=== PATIENT | male | born 1960 | race Caucasian/White ===

== ENCOUNTER 2017-03-14 12:54 | Observation (INO) | payer BC ==
--- NOTE | 2017-03-14 14:13 | RAD ---
INDICATION: Dizziness. COMPARISON: Comparison is made with a prior chest x-ray study from October 02, 2014. TECHNIQUE: Dual-energy PA and lateral views of the chest were obtained. FINDINGS: The heart is within normal limits in size. Mediastinal and hilar contours appear within normal limits. The lungs are hyperinflated and clear. No pleural effusion is seen. IMPRESSION: NO EVIDENCE FOR ACTIVE CARDIOPULMONARY DISEASE.
[2017-03-14 14:25] LABS: Hematocrit 41 % (42-52); Hemoglobin 14.1 g/dl (14.0-18.0); Mean Corpuscular HGB Conc 34 g/dl (31-36); Mean Corpuscular Hemoglobin 35 pg (27-31); Mean Corpuscular Volume 100 fL (80-94); Mean Platelet Volume 8 um3 (7.4-10.4); Red Blood Count 4.08 10^6/ul (4.0-5.4); Red Cell Distribution Width 13 % (10.5-15); White Blood Count 12.6 10^3/ul (3.5-10.8)
[2017-03-14 14:45] LABS: Troponin I 0.01 ng/mL (<0.04)
--- NOTE | 2017-03-14 14:45 | RAD ---
Indication: Dizziness. CT of the brain was performed without IV contrast. Ventricular structures are midline. No midline shift is noted. The extraction spaces are unremarkable. There is no evidence of intracranial mass or hemorrhage. No other high or low density lesions are identified. Mastoid air cells and paranasal sinuses are unremarkable. No significant change is noted since July 13, 2012 IMPRESSION: No intracranial mass or hemorrhage is noted.
[2017-03-14 14:46] LABS: ALT 23 U/L (7-52); Albumin 4.4 g/dL (3.2-5.2); Alkaline Phosphatase 53 U/L (34-104); BUN/Creatinine Ratio 28.2 (8-20); Blood Urea Nitrogen 20 mg/dL (6-24); C Reactive Protein 8.64 mg/L (< 5.00); CO2 Carbon Dioxide 20 mmol/L (22-32); Calcium 9.8 mg/dL (8.6-10.3); Chloride 102 mmol/L (101-111); Creatine Kinase 202 U/L (10-223); EGFR African American 147.1 (>60); EGFR Non-African American 114.4 (>60); Globulin 3.2 g/dL (2-4); Glucose 97 mg/dL (70-100); Sodium 130 mmol/L (133-145); Total Protein 7.6 g/dL (6.4-8.9)
[2017-03-14 15:01] LABS: Alcohol < 10 mg/dL (<10)
[2017-03-14] MEDS ORDERED: Iohexol 350* (CONTRAST) 500 ML MDV IV ONE (15:04)
[2017-03-14 15:05] LABS: TSH (Thyroid Stimulating Horm) 0.96 mcIU/mL (0.34-5.60)
[2017-03-14 15:26] LABS: AST 32 U/L (13-39); Anion Gap 8 mmol/L (2-11); Magnesium 1.9 mg/dL (1.9-2.7); Potassium 4.9 mmol/L (3.5-5.0)
[2017-03-14 15:30] LABS: Urine Bilirubin Negative (Negative); Urine Glucose Negative (Negative); Urine Nitrite Negative (Negative)
[2017-03-14 16:04] LABS: Benzodiazepine Urine Screen None Detected (None Detect)
[2017-03-14] MEDS ORDERED: Aspirin Low Dose CHEW TAB* 81 MG PO ONE (16:05)
--- NOTE | 2017-03-14 16:17 | RAD ---
Indication: Unsteady gait. Contrast: Administered 80.1 ml of OMNIPAQUE 350 mg/ml CTA of the neck and head was performed after IV contrast administration. Coronal and sagittal reconstructed images were obtained. The origins of the great vessels are unremarkable. The right and left common carotid artery demonstrates no intimal wall thickening. Calcific plaque is noted in the carotid bulbs bilaterally however no significant stenosis of either internal carotid artery is noted. The internal carotid arteries are patent without evidence of aneurysmal dilatation or carotid artery dissection. The vertebral arteries are unremarkable. The left vertebral artery has a separate origin arising from the aortic arch. Intracranial circulation demonstrates normal anterior and middle cerebral artery bifurcation. No branch occlusion is identified. Basilar artery and posterior cerebral arteries are unremarkable. IMPRESSION: No branch occlusion is noted. No aneurysmal dilatation is noted. Minimal plaque is noted in the carotid bulbs bilaterally. CTA of the head demonstrates no aneurysmal dilatation or branch occlusion.
--- NOTE | 2017-03-14 16:25 | RAD ---
Indication: Ataxia. Image sequences: Sagittal and axial T1, axial T2, FLAIR, diffusion and susceptibility weighted images of the brain were obtained. Ventricular structures are midline. No midline shift is noted. The extra-axial spaces are unremarkable. There is no evidence of intracranial mass or hemorrhage. No other high or low density lesions are identified. Periventricular signal abnormalities are noted in the deep white matter of the parietal lobes bilaterally. No restriction of diffusion is noted. Susceptibility weighted images demonstrates no evidence of residual hemosiderin. IMPRESSION: Chronic ischemic White matter change without evidence of restriction of diffusion.
[2017-03-14] MEDS ORDERED: hydrOXYzine HCL TAB* 10 MG PO PRN (17:26)
[2017-03-14] MEDS ORDERED: Meloxicam(NF) 15 MG TAB PO PRN (17:26)
[2017-03-14] MEDS ORDERED: Thiamine TAB* 100 MG TAB PO ONE (17:29)
--- NOTE | 2017-03-14 17:39 | CONS ---
CONSULTATION REPORT: DATE OF CONSULT: 03/14/17 PATIENT OF: Dr. Flores. HISTORY OF PRESENT ILLNESS: This is a 56-year-old man without prior stroke who at 10 a.m. this morning presented acutely with a feeling of being off balance. He tried to walk and also drive and he was weaving both with his walking and his driving to either side. He did not actually fall. He had no weakness, numbness. He has had a slight mild bifrontal headache with this. No visual symptoms. One side did not feel particularly worse than the other as far as he could tell. There has been no prior stroke. He had a feeling of imbalance about 6 months ago when he was helping his son but this passed relatively quickly. He is not better now than he was at 10 o' clock when this started. At sometime early afternoon he came by ambulance to the emergency room and I was notified at about 2:15 of his story. Risk factors include hypertension, hyperlipidemia, and a greater than 40-year history of at least 1 pack a day. Of note, he drinks 3 to 4 beers a day during weekdays and more heavily on weekends. There has been no recent surgeries. He has also had GERD and nonischemic cardiomyopathy. He has had a cardiac cath. In the past he has had bilateral carpal tunnel release, rotator cuff repair. MEDICATIONS: Include: 1. Vitamin D 2000 units daily. 2. Mobic 7.5 to 15 mg daily p.r.n. 3. Nexium 40 mg daily. 4. Metoprolol XL 50 mg daily. 5. Cymbalta 60 mg b.i.d. 6. Lisinopril 20 mg daily. 7. Lipitor 40 mg daily. 8. Claritin 10 mg daily. 9. Atarax 10 to 30 mg t.i.d. p.r.n. FAMILY HISTORY: Negative for hypertension, diabetes, cardiovascular disease. 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 REVIEW OF SYSTEMS: Negative in all 14 spheres other than the HPI. PHYSICAL EXAM: Temperature 98.5, pulse 82, respirations 22, blood pressure 130/ 85. He is alert and oriented with normal speech and comprehension. Cranial nerves II through XII were intact. There was no nystagmus. Fundi were benign. There was no temporal artery tenderness. [id number] showed no major abnormalities. There was mild tremor on the left hand compared to the right but no overt dysmetria. His rapid alternating movements were smoother on the right than the left, but he is right handed. [id number] appeared intact. Strength 5/5. Walking, he was somewhat unsteady and could walk independently but tended to veer off to either the left or the right. Reflexes were 2+. Toes were downgoing. Chest: Clear. Cardiovascular : Regular rate and rhythm. Abdomen: Soft with positive bowel sounds. Was intact to light touch diffusely. Neck was nontender. He had no temporal artery tenderness. DIAGNOSTIC STUDIES/LAB DATA: White count of 12.6, MCV of 100, hematocrit of 41 , platelets of 337,000. Normal PTT. Sodium of 130, bicarb of 40. Normal BUN and creatinine. Normal liver function tests. C-reactive protein was 8.64. Normal TSH. UA was negative. Toxicology showed serum alcohol less than 10. CT scan of the brain was normal and was reviewed. His CTA has just been done and all pictures are not formatted, I will be reviewing shortly. The concern of the acute onset of ataxia is whether this could be a cerebellar ischemia. We will be getting CTA shortly and I discussed with the family that if there is some large vessel occlusion or abnormality, then we may contact [facility] for their opinion and possible transfer to a tertiary center. If not, he will be managed here. When the case was discussed with me, he was at about 4 hours and 15 minutes out of the past event. I discussed if he had further events, he needs to come in at the onset of his events. I discussed also that the acute onset raises a possibility of cerebellar ischemia but there is no clear-cut obvious focality to his exam and it is possible that this could be some other process. He did have some other possible related event back in about 5 or 6 months ago. Thank you for sharing his case. [id number]/[facility] #: [id number] [place]
--- NOTE | 2017-03-14 18:09 | ED ---
Myron Rosario Aidan, scribed for Adin Flores MD on 03/14/17 at 1608 . Neurological HPI - HPI Summary HPI Summary: 56 y/o male presents to the ED via EMS with a complaint of an acute, moderate episode of dizziness and slurred speech that occurred just MUSIC REHABILITATION THER[employer]IST while the patient was at work. During EMS transportation, he also had CP that has resolved. 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 His dizziness was described as seeing the room spin. He later felt as though he was not driving in a straight line and he had associated nausea. At 1150, he called the police. Pt denies vomiting. When he was found, he had an 2 sat of 86%. When he was placed on 2l O2, his O2 sat went up to 93%. - History of Current Complaint Chief Complaint: EDDizziness Stated Complaint: POSSIBLE STROKE Time Seen by Provider: 03/14/17 13:42 Hx Obtained From: Patient, EMS Onset/Duration: Sudden Onset, Started minutes ago, Resolved Timing: Intermittent Episodes Lasting: Onset Severity: Moderate Current Severity: Mild Number of Seizures: 0 - Pt may have had a stroke Neurological Deficit Location: Generalized - dizziness, CP Pain Intensity: 0 Pain Scale Used: 0-10 Numeric Character: Other: - dizziness, CP, possible CVA Number of Episodes: 1 Syncope Context: Unwitnessed, Loss of Consciousness: No, At Rest - driving a car Frequency: Episodes x___ - 1, Episodes Lasting ____ (in Mins/Days/Weeks/Years) - minutes Seizure Character: Generalized Aggravating: Unknown Alleviating: Unknown Associated Signs and Symptoms: Negative: Negative - dizzines, CP, slurred speech , nausea - Allergy/Home Medications Allergies/Adverse Reactions: Allergies Allergy/AdvReac Type Severity Reaction Status Date / Time No Known Allergies Allergy Verified 08/15/16 08:55 Home Medications: Home Medications LoraTADine TAB(NF) [Claritin 10 MG TAB(NF)] 10 mg PO DAILY 03/14/17 [History Confirmed 03/14/17] hydrOXYzine HCL TAB* [Atarax 10 MG TAB*] 10 - 30 mg PO TID PRN 03/14/17 [ History Confirmed 03/14/17] PMH/Surg Hx/FS Hx/Imm Hx Endocrine/Hematology History: Denies: Hx Anticoagulant Therapy, Hx Diabetes, Hx Thyroid Disease Cardiovascular History: Reports: Hx Angina, Hx Hypercholesterolemia, Hx Hypertension, Other Cardiovascular Problems/Disorders - CHOLESTEROL CONTROL WITH MEDS Denies: Hx Coronary Artery Disease, Hx Myocardial Infarction, Hx Pacemaker/ ICD, Hx Valvular Heart Disease Respiratory History: Denies: Hx Asthma, Hx Chronic Obstructive Pulmonary Disease (COPD) GI History: Reports: Hx Gastroesophageal Reflux Disease - ON MEDS History: Denies: Hx Renal Disease Musculoskeletal History: Reports: Other Musculoskeletal History - MENISCAL TEAR LEFT KNEE Sensory History: Denies: Hx Contacts or Glasses, Hx Hearing Aid Opthamlomology History: Denies: Hx Contacts or Glasses Neurological History: Denies: Hx Dementia, Hx Seizures Psychiatric History: Reports: Hx Depression - ON MEDS Denies: Hx Panic Disorder, Hx Substance Abuse - Surgical History Surgery Procedure, Year, and Place: 1997 BILATERAL CARPAL TUNNEL RELEASE, [facility]. 2007 & 2007 RIGHT ROTATOR CUFF REPAIR X 2, [facility]. 03/2014 CARDIAC CATHERIZATION, [facility]. MENISCUS REPAIR LEFT KNEE Hx Anesthesia Reactions: No Infectious Disease History: No Infectious Disease History: Denies: Hx Hepatitis, Hx Human Immunodeficiency Virus (HIV), Traveled Outside the in Last 30 Days - Family History Known Family History: Positive: Hypertension - Social History Occupation: Employed Full-time Lives: With Family Alcohol Use: Daily Alcohol Amount: 1-2 BEERS Substance Use Type: Reports: None Smoking Status (MU): Heavy Every Day Tobacco Smoker Type: Cigarettes Amount Used/How Often: 1 PPD Length of Time of Smoking/Using Tobacco: 40 YEARS Have You Smoked in the Last Year: Yes Review of Systems Constitutional: Negative Eyes: Negative ENT: Negative Positive: Chest Pain. Negative: Palpitations Respiratory: Negative Positive: Nausea. Negative: Abdominal Pain, Vomiting, Diarrhea Genitourinary: Negative Musculoskeletal: Negative Skin: Negative Neurological: Other - dizziness Positive: Slurred Speech. Negative: Headache, Weakness, Paresthesia, Numbness Psychological: Normal All Other Systems Reviewed And Are Negative: Yes Physical Exam - Summary Physical Exam Summary: VITAL SIGNS: Reviewed. GENERAL: Patient is a well developed and nourished male who is lying comfortable in the stretcher. Patient is not in any acute respiratory distress. HEAD AND FACE: No signs of trauma. No ecchymosis, hematomas or skull depressions. No sinus tenderness. EYES: PERRLA, EOMI x 2, No injected conjunctiva, no nystagmus. No photophobia. EARS: Hearing grossly intact. Ear canals and tympanic membranes are within normal limits. MOUTH: Oropharynx within normal limits. NECK: Supple, trachea is midline, no adenopathy, no JVD, no carotid bruit, no c- spine tenderness, neck with full ROM. No meningeal signs, no Kernig's or brudzinskis signs. CHEST: Symmetric, no tenderness at palpation LUNGS: Clear to auscultation bilaterally. No wheezing or crackles. CVS: Regular rate and rhythm, S1 and S2 present, no murmurs or gallops appreciated. ABDOMEN: Soft, non-tender. No signs of distention. No rebound no guarding, and no masses palpated. Bowel sounds are normal. EXTREMITIES: FROM in all major joints, no edema, no cyanosis or clubbing. NEURO: Alert and oriented x 3. NIH score is 0. However when I ambulated the patient he had ataxia. GCS: 15 SKIN: Dry and warm Triage Information Reviewed: Yes Vital Signs On Initial Exam: Initial Vitals Temp Pulse Resp BP Pulse Ox 98.5 F 76 18 136/81 95 03/14/17 13:21 03/14/17 13:21 03/14/17 13:21 03/14/17 13:21 03/14/17 13:21 Vital Signs Reviewed: Yes - Drift Coma Scale Coma Scale Total: 15 Diagnostics - Vital Signs Vital Signs Temp Pulse Resp BP Pulse Ox 03/14/17 13:30 82 22 130/85 95 03/14/17 13:27 83 18 95 03/14/17 13:26 136/81 03/14/17 13:21 98.5 F 76 18 136/81 95 - Laboratory Lab Results: Lab Results 03/14/17 03/14/17 03/14/17 Range/Units 14:10 14:10 14:10 WBC 12.6 H (3.5-10.8) 10^3/ul RBC 4.08 (4.0-5.4) 10^6/ul Hgb 14.1 (14.0-18.0) g/dl Hct 41 L (42-52) % MCV 100 H (80-94) fL MCH 35 H (27-31) pg MCHC 34 (31-36) g/dl RDW 13 (10.5-15) % Plt Count 337 (150-450) 10^3/ul MPV 8 (7.4-10.4) um3 Neut % (Auto) 82.4 (38-83) % Lymph % (Auto) 7.4 L (25-47) % [place] % (Auto) 8.9 (1-9) % Eos % (Auto) 0.9 (0-6) % Baso % (Auto) 0.4 (0-2) % Absolute Neuts (auto) 10.4 H (1.5-7.7) 10^3/ul Absolute Lymphs (auto) 0.9 L (1.0-4.8) 10^3/ul Absolute Monos (auto) 1.1 H (0-0.8) 10^3/ul Absolute Eos (auto) 0.1 (0-0.6) 10^3/ul Absolute Basos (auto) 0 (0-0.2) 10^3/ul Absolute Nucleated RBC 0 10^3/ul Nucleated RBC % 0 APTT 26.5 (26.0-36.3) seconds Sodium 130 L (133-145) mmol/L Potassium 4.9 (3.5-5.0) mmol/L Chloride 102 (101-111) mmol/L Carbon Dioxide 20 L (22-32) mmol/L Anion Gap 8 (2-11) mmol/L BUN 20 (6-24) mg/dL Creatinine 0.71 (0.67-1.17) mg/dL Est GFR ( Amer) 147.1 (>60) Est GFR (Non-Af Amer) 114.4 (>60) BUN/Creatinine Ratio 28.2 H (8-20) Glucose 97 (70-100) mg/dL Lactic Acid (0.5-2.0) mmol/L Calcium 9.8 (8.6-10.3) mg/dL Magnesium 1.9 (1.9-2.7) mg/dL Total Bilirubin 0.50 (0.2-1.0) mg/dL AST 32 (13-39) U/L ALT 23 (7-52) U/L Alkaline Phosphatase 53 (34-104) U/L Total Creatine Kinase 202 (10-223) U/L Troponin I 0.01 (<0.04) ng/mL C-Reactive Protein 8.64 H (< 5.00) mg/L B-Natriuretic Peptide ( - 100) pg/mL Total Protein 7.6 (6.4-8.9) g/dL Albumin 4.4 (3.2-5.2) g/dL Globulin 3.2 (2-4) g/dL Albumin/Globulin Ratio 1.4 (1-3) TSH 0.96 (0.34-5.60) mcIU/mL Urine Color Urine Appearance Urine pH (5-9) Ur Specific Ramsey (1.010-1.030) Urine Protein (Negative) Urine Ketones (Negative) Urine Blood (Negative) Urine Nitrate (Negative) Urine Bilirubin (Negative) Urine Urobilinogen (Negative) Ur Leukocyte Esterase (Negative) Urine Glucose (Negative) Serum Alcohol < 10 (<10) mg/dL 03/14/17 03/14/17 03/14/17 Range/Units 14:10 14:10 15:18 WBC (3.5-10.8) 10^3/ul RBC (4.0-5.4) 10^6/ul Hgb (14.0-18.0) g/dl Hct (42-52) % MCV (80-94) fL MCH (27-31) pg MCHC (31-36) g/dl RDW (10.5-15) % Plt Count (150-450) 10^3/ul MPV (7.4-10.4) um3 Neut % (Auto) (38-83) % Lymph % (Auto) (25-47) % [place] % (Auto) (1-9) % Eos % (Auto) (0-6) % Baso % (Auto) (0-2) % Absolute Neuts (auto) (1.5-7.7) 10^3/ul Absolute Lymphs (auto) (1.0-4.8) 10^3/ul Absolute Monos (auto) (0-0.8) 10^3/ul Absolute Eos (auto) (0-0.6) 10^3/ul Absolute Basos (auto) (0-0.2) 10^3/ul Absolute Nucleated RBC 10^3/ul Nucleated RBC % APTT (26.0-36.3) seconds Sodium (133-145) mmol/L Potassium (3.5-5.0) mmol/L Chloride (101-111) mmol/L Carbon Dioxide (22-32) mmol/L Anion Gap (2-11) mmol/L BUN (6-24) mg/dL Creatinine (0.67-1.17) mg/dL Est GFR ( Amer) (>60) Est GFR (Non-Af Amer) (>60) BUN/Creatinine Ratio (8-20) Glucose (70-100) mg/dL Lactic Acid 0.9 (0.5-2.0) mmol/L Calcium (8.6-10.3) mg/dL Magnesium (1.9-2.7) mg/dL Total Bilirubin (0.2-1.0) mg/dL AST (13-39) U/L ALT (7-52) U/L Alkaline Phosphatase (34-104) U/L Total Creatine Kinase (10-223) U/L Troponin I (<0.04) ng/mL C-Reactive Protein (< 5.00) mg/L B-Natriuretic Peptide 19 ( - 100) pg/mL Total Protein (6.4-8.9) g/dL Albumin (3.2-5.2) g/dL Globulin (2-4) g/dL Albumin/Globulin Ratio (1-3) TSH (0.34-5.60) mcIU/mL Urine Color Straw Urine Appearance Clear Urine pH 5.0 (5-9) Ur Specific [place] 1.005 L (1.010-1.030) Urine Protein Negative (Negative) Urine Ketones Negative (Negative) Urine Blood Negative (Negative) Urine Nitrate Negative (Negative) Urine Bilirubin Negative (Negative) Urine Urobilinogen Negative (Negative) Ur Leukocyte Esterase Negative (Negative) Urine Glucose Negative (Negative) Serum Alcohol (<10) mg/dL Result Diagrams: 03/14/17 14:10 03/14/17 14:10 Lab Statement: Any lab studies that have been ordered have been reviewed, and results considered in the medical decision making process. - Radiology BRAIN MRI Xray Interpretation: Positive (See Comments) - IMPRESSION: Chronic ischemic White matter change without evidence of restriction of diffusion. Radiology Interpretation Completed By: Radiologist - CT HEAD CTA CT Interpretation: Positive (See Comments) - IMPRESSION: No branch occlusion is noted. No aneurysmal dilatation is noted. Minimal plaque is noted in the carotid bulbs bilaterally. CTA of the head demonstrates no aneurysmal dilatation or branch occlusion. 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 During EMS transportation, he also had CP that has resolved. 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 His dizziness was described as seeing the room spin. He later felt as though he was not driving in a straight line and he had associated nausea. At 1150, he called the police. Pt denies vomiting. When he was found, he had an 2 sat of 86%. When he was placed on 2l O2, his O2 sat went up to 93%. In the ED course an IV access was obtained. Patient was placed in a cardiac rn. Patient was started with IV fluids. Labs within normal limits except for WBC 12.6, Na 130, CRP 8.6. Troponin #1: 0.01. UA negative for UTI. EKG shows a NSR at w/o ST elevations. CXR impression: No acute pathology. CT Brain: No acute intracranial pathology. In the ED course I discussed the case with Dr. Nelson who came and saw the patient. He recommended to get a CTA . After he reviewed the CTA he recommended to order an MRI and give the patient ASA. He also requested to admit patient to the hospitalist services. He continues to be stable. I discuss my physical exam, findings and test results with Dr. Guido from the hospitalist services and she agrees to admit patient to his services. Patient is hemodynamically stable alert and oriented x 3. I discuss my physical exam, findings and test results with Dr. Guido from the hospitalist services and she agrees to admit patient to his services. Patient is hemodynamically stable alert and oriented. He will be admitted to Dr. Guido for further evaluation. - Differential Dx Differential Diagnoses Neuro: Positive: Carbon Monoxide Poisoning, Cerebrovascular Accident, Seizure Disorder, Transient Ischemic Attack - Diagnoses Provider Diagnoses: Cerebellar Ischemia Discharge - Discharge Plan Condition: Stable Disposition: ADMITTED TO [facility] Discharge Disposition Comment: The patient will be admitted to Dr. Guido for further evaluation Referrals: Brittany Velez MD [Primary Care Provider] - The documentation as recorded by the Myron estevez Aidan accurately reflects the service I personally performed and the decisions made by me, Adin Flores MD.
[2017-03-14] MEDS ORDERED: LORazepam TAB(*) 1 MG PO SCH (19:00)
[2017-03-14] MEDS: Folic Acid TAB* 1 MG PO SCH (19:21)
[2017-03-14] MEDS: Heparin VIAL(*) 5000 UNITS/ML VIAL (FIVE THOUSAND) SUBCUT SCH (21:14)
[2017-03-14] MEDS: DULoxetine DR CAP* 60 MG CAP.DR PO SCH (21:14)
--- NOTE | 2017-03-14 21:24 | HP ---
HISTORY AND PHYSICAL: DATE OF ADMISSION: 03/14/17 PRIMARY CARE PHYSICIAN: Dr. Velez. CHIEF COMPLAINT: Ataxia. HISTORY OF PRESENT ILLNESS: Mr. Shaffer is a 56-year-old male with past medical history of hypertension, nonischemic cardiomyopathy with an EF 40% to 45%, GERD , depression, anxiety, hyperlipidemia, alcohol abuse, who presents to the hospital with some sensation of dizziness and feeling off balance. The patient states his symptoms began around 10:30 this morning. 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 He states his symptoms progressed to the point where he was stumbling and he felt like he was very drunk. He continued to make stops with his [employer] truck and seemed that with each stop, his symptoms became worse and worse until he noted that he was swerving slightly when he was driving. At this point, the patient called EMS because he felt like he had had difficulty even standing up at that point. He reported associated nausea with this. Denied any emesis or chest pain. Did report some associated shortness of breath, but feels this may have just been anxiety. He felt very sweaty when this was happening. No fever or chills recently. He has been eating and drinking well. 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 He was unable to complete the sheetrocking and called his . He went home and went to sleep and then it had resolved the next day. PAST MEDICAL HISTORY: Hypertension, GERD, alcohol abuse, nonischemic cardiomyopathy with an EF of 40% to 45%, depression, anxiety, and hyperlipidemia. PAST SURGICAL HISTORY: Left ankle ORIF, carpal tunnel release, left knee arthroscopy, right shoulder surgery. HOME MEDICATIONS: 1. Vitamin D3 2000 units by mouth daily. 2. Multivitamin 1 tablet by mouth daily. 3. Mobic 7.5 to 15 mg by mouth daily as needed for pain. 4. Esomeprazole 40 mg by mouth daily. 5. Toprol 50 mg by mouth daily. 6. Duloxetine 60 mg by mouth 2 times daily. 7. Lisinopril 20 mg by mouth daily. 8. Atorvastatin 40 mg by mouth daily. 9. Loratadine 10 mg by mouth daily. 10. Hydroxyzine 10 to 30 mg 3 times daily as needed for anxiety. FAMILY HISTORY: Significant for mother with breast cancer, a brother with colon cancer, father with esophageal cancer, maternal grandmother with leukemia. SOCIAL HISTORY: The patient is a 5-wrwh-lnu-day smoker x40 years. He reports drinking 2 to 3 drinks a night every day of the week and he states that on the weekends, it is not unusual for him to go through a 30-pack of beers in 2 days. He denies any history of withdrawal symptoms. REVIEW OF SYSTEMS: The patient reports chronic mild cough and congestion. Otherwise, 12-point review of systems is negative except for that as noted in the HPI. PHYSICAL EXAMINATION GENERAL: The patient is a middle-aged man, lying in bed, in no apparent distress. VITAL SIGNS: On admission, temperature 98.5, heart rate is 76, respiratory rate of 18, O2 saturation is 95% on room air, blood pressure 136/81. HEENT: Head: Normocephalic, atraumatic. Eyes: Pupils equal, round, reactive to light and accommodation. Anicteric sclerae. ENT: Dry mucous membranes. No cervical adenopathy. LUNGS: Clear to auscultation bilaterally. No wheezes, rales, or rhonchi. CARDIOVASCULAR: Regular rate and rhythm. S1 and S2 present. No murmurs, gallops, or rubs. ABDOMEN: Soft, nontender, nondistended. Bowel sounds positive. Ventral hernia. EXTREMITIES: No cyanosis, clubbing, or edema. NEURO: The patient is alert and oriented x3. Cranial nerves II through XII intact. Strength is 5/5 throughout, bilateral upper and lower extremities. Sensation is intact and symmetric bilaterally. Lsrimb-eb-wfap seems good. Did not assess the patient's gait, but with Neurology, he tended to veer one way or the other. DIAGNOSTIC STUDIES/LAB DATA: White blood cell count of 12.6, hematocrit of 41 , platelets are 337. Sodium of 130, potassium 4.9, chloride of 102, carbon dioxide of 20, BUN of 20, creatinine 0.71, glucose of 97. LFTs within normal limits. Troponin 0.01. CRP of 8.64. TSH of 0.96. UA negative. U-tox negative. EKG personally reviewed shows normal sinus rhythm. Chest x-ray shows no acute disease. CT shows no acute disease. CTA of the head and neck shows no significant stenosis. MRI: Chronic ischemic white matter change without evidence of restriction or diffusion. ASSESSMENT AND PLAN: Ataxia in a 56-year-old male with a past medical history of hypertension, nonischemic cardiomyopathy, gastroesophageal reflux disease, depression, anxiety, hyperlipidemia, and alcohol abuse. 1. Ataxia: Appreciate Neurology's assistance. I spoke with Dr. Nelson, who was concerned about a possible cerebellar transient ischemic attack, and an initial part of the stroke workup has been negative. We will order an echocardiogram and a lipid panel for the morning. We will monitor the patient on telemetry. The patient has received a full-dose aspirin in the emergency department. We will continue 81 mg by mouth daily for now. We will check hemoglobin A1c. 2. Hypertension: Continue home lisinopril, metoprolol. 3. Nonischemic cardiomyopathy: Continue atorvastatin, metoprolol, and lisinopril. 4. Alcohol abuse: The patient denies any history of alcohol withdrawal symptoms. He states his last drink was 2 nights ago. We will monitor the patient on [facility] protocol and start on thiamine, folate, and multivitamin. 5. Gastroesophageal reflux disease: Continue PPI. 6. Depression: Continue duloxetine. 7. DVT prophylaxis: Heparin subcu. 8. Code status: The patient is full code. TIME SPENT: Total time spent on this admission, 40 minutes with over half the time spent [id number] with the patient in counseling and coordinating care. [id number]/[facility] #: [id number] CAROLINA
[2017-03-15] MEDS: Heparin VIAL(*) 5000 UNITS/ML VIAL (FIVE THOUSAND) SUBCUT SCH ×2 (05:37→13:13)
[2017-03-15 05:54] LABS: Hematocrit 43 % (42-52); Hemoglobin 14.7 g/dl (14.0-18.0); Mean Corpuscular HGB Conc 34 g/dl (31-36); Mean Corpuscular Hemoglobin 34 pg (27-31); Mean Corpuscular Volume 101 fL (80-94); Mean Platelet Volume 7 um3 (7.4-10.4); Red Blood Count 4.28 10^6/ul (4.0-5.4); Red Cell Distribution Width 13 % (10.5-15); White Blood Count 7.5 10^3/ul (3.5-10.8)
[2017-03-15 06:08] LABS: Calcium 10.1 mg/dL (8.6-10.3); EGFR African American 138.1 (>60); EGFR Non-African American 107.3 (>60); Potassium 4.2 mmol/L (3.5-5.0)
[2017-03-15] MEDS ORDERED: Aspirin EC Low Dose* 81 MG TAB.EC PO SCH (09:00)
[2017-03-15] MEDS ORDERED: Omeprazole CAP* 20 MG PO SCH (09:00)
[2017-03-15] MEDS ORDERED: Atorvastatin* 40 MG TAB PO SCH (09:00)
[2017-03-15] MEDS ORDERED: Cholecalciferol TAB* 1000 UNITS PO SCH (09:00)
[2017-03-15] MEDS ORDERED: Thiamine TAB* 100 MG TAB PO SCH (09:00)
[2017-03-15] MEDS ORDERED: Lisinopril TAB* 10 MG PO SCH (09:00)
[2017-03-15] MEDS ORDERED: Cetirizine* 10 MG TAB PO SCH (09:00)
[2017-03-15] MEDS ORDERED: Multivitamins/Minerals TAB PO SCH (09:00)
[2017-03-15] MEDS ORDERED: Metoprolol Succinate XL TAB* 50 MG PO SCH (09:00)
[2017-03-15] MEDS: Folic Acid TAB* 1 MG PO SCH (10:28)
[2017-03-15] MEDS: DULoxetine DR CAP* 60 MG CAP.DR PO SCH (10:29)
[2017-03-15] MEDS ORDERED: Atorvastatin* 80 MG TAB PO SCH (16:15)
--- NOTE | 2017-03-15 17:40 | ECHO ---
Patient: MILAGROS PEARSON [facility] Rec#: [id number] : 1960 Date: 03/15/2017 Age: 56y Height: 165.1 cm / 65.0 in Weight: 66.2 kg / 145.9 lbs Sex: M BSA: 1.7 Room#: 435 Admit Date#: 03/14/2017 Type: Inpatient Referring: KALYAN SR MD Reading: Ziggy Lau MD Stacker: Rosie Farias RN RDCS CC: Brittany Millard MD Transthoracic Echocardiogram Indication: TIA BP: 125/83 HR: 97 Rhythm: NSR Findings History: Non-ischemic cardiomyopathy, HTN, HLD, smoker, ETOH abuse, GERD Technical Comments: The study quality is fair. The study is technically limited due to the patient's smoking history. Completed at 1350. Left Ventricle: The left ventricular chamber size is normal. Mild concentric left ventricular hypertrophy is observed. There is global hypokinesis of the left ventricle with minor regional variation. There is mildly decreased left ventricular systolic function. The estimated ejection fraction is 45-50%. closer to 50%. Relative hypokinesis of the posterior and lateral segments Abnormal left ventricular diastolic filling is observed, consistent with impaired relaxation. Left Atrium: The left atrial chamber size is normal. Right Ventricle: The right ventricular cavity size is normal. The right ventricular global systolic function is low normal. Right Atrium: There were late bubbles seen in the left atrium.This raises the possiblity of an intrapulmonary shunt. No definitive evidence of a PFO. A patent foramen ovale is not demonstrated by agitated contrast. There is evidence of an atrial septal aneurysm. Aortic Valve: The aortic valve is trileaflet. The aortic valve leaflets are mildly thickened. There is no evidence of aortic regurgitation. There is no evidence of aortic stenosis. Mitral Valve: Mild mitral annular calcification present. The mitral valve leaflets are mildly thickened. There is trace to mild mitral regurgitation. There is no evidence of mitral stenosis. Tricuspid Valve: The tricuspid valve leaflets are normal. There is trace tricuspid regurgitation. Unable to estimate the right ventricular systolic pressure. Pulmonic Valve: The pulmonic valve appears normal. There is trace to mild pulmonic regurgitation. There is no pulmonic stenosis. Pericardium: There is no significant pericardial effusion. Aorta: There is no dilatation of the ascending aorta. There is no dilatation of the aortic arch. There is no dilation of the aortic root. Pulmonary Artery: The main pulmonary artery is not well visualized. Venous: The inferior vena cava appears normal in size. There is a greater than 50% respiratory change in the inferior vena cava dimension. Contrast: Normal saline was used as contrast for the bubble study. Images 103 and 104. Conclusions The study quality is fair. Mild concentric left ventricular hypertrophy is observed. There is global hypokinesis of the left ventricle with minor regional variation. There is mildly decreased left ventricular systolic function. The estimated ejection fraction is 45-50%. closer to 50%. Relative hypokinesis of the posterior and lateral segments. Abnormal left ventricular diastolic filling is observed, consistent with impaired relaxation. There were late bubbles seen in the left atrium.This raises the possiblity of an intrapulmonary shunt. No definitive evidence of a PFO. The aortic valve leaflets are mildly thickened. There is trace to mild mitral regurgitation. There is trace tricuspid regurgitation. Mild improvement in EF c/t 03/2015 when it was 40-45%. Measurements Name Value Normal Range RVDdMajor (2D) 3.1 cm (2.2 - 4.4) RAd ISD 4CH 3.2 cm (3.4 - 4.9) RA (A4C)W 3.5 cm (2.9 - 4.6) IVSd (2D) 1.1 cm (0.6 - 1) LVPWd (2D) 1.1 cm (0.6 - 1) LVIDd (2D) 4.5 cm (3.6 - 5.4) LVIDs (2D) 3.4 cm - LV FS (2D) 25 % (25 - 45) Aortic Annulus 2.2 cm (1.4 - 2.6) Ao root diameter (2D) 3.5 cm (2.1 - 3.5) Ascending Ao 3.1 cm (2.1 - 3.4) Aortic arch 2.1 cm (1.8 - 3.4) LA dimension (AP) 2D 3.2 cm (2.3 - 3.8) LAd ISD 4CH 4.1 cm (2.9 - 5.3) LA ISD 4CH W 3.1 cm (2.5 - 4.5) Name Value Normal Range LA ESV SP 4CH (A/L) 19 ml - LA ESV SP 2CH (A/L) 47 ml - LA ESV BP (A/L) 33 ml - LA ESV BP (A/L) index 19 ml/m2 - LA ESV SP 4CH (MOD) 17 ml - LA ESV SP 2CH (MOD) 45 ml - Name Value Normal Range MV E-wave Vmax 0.54 m/sec - MV deceleration time 199 msec - MV A-wave Vmax 0.74 m/sec - MV E:A ratio 0.74 ratio - LV septal e' Vmax 0.06 m/sec - LV lateral e' Vmax 0.07 m/sec - LV E:e' septal ratio 9 ratio - LV E:e' lateral ratio 7.7 ratio - Name Value Normal Range AV Vmax 1.5 m/sec - AV VTI 23.2 cm - AV peak gradient 8.7 mmHg - AV mean gradient 4.8 mmHg - LVOT Vmax 0.94 m/sec - LVOT VTI 15.5 cm - LVOT peak gradient 3.5 mmHg - LVOT mean gradient 2.4 mmHg - ZHANNA Vmax 0.92 m/sec - Name Value Normal Range IVC diameter 0.98 cm - Name Value Normal Range PV Vmax 0.73 m/sec -
[2017-03-15 18:32] VITALS: BP 106/69
--- NOTE | 2017-03-16 23:10 | DS ---
CC: Dr. Brittany Millard; Dr. Nelson, Neurology * DISCHARGE SUMMARY: DATE OF ADMISSION: 03/14/17 DATE OF DISCHARGE: 03/15/17 PRIMARY CARE PROVIDER: Dr. Brittany Millard. DISCHARGE DIAGNOSIS: Ataxia most likely due to transient ischemic attack, transient, resolved. SECONDARY DIAGNOSES: 1. Hypertension. 2. Gastroesophageal reflux disease. 3. History of alcohol abuse. 4. Nonischemic cardiomyopathy with EF of 40% to 45%. 5. Depression. 6. Anxiety. 7. Hyperlipidemia. MEDICATIONS AT ADMISSION: Include: 1. Aspirin 81 mg daily. 2. Atorvastatin 80 mg daily. 3. Vitamin D 2000 units daily. 4. Cymbalta 60 mg b.i.d. 5. Nexium 40 mg daily. 6. Lisinopril 20 mg daily. 7. Ferritin 10 mg daily. 8. Mobic 15 mg on a p.r.n. basis. 9. Toprol XL 50 mg daily. 10. Multivitamin 1 tablet daily. 11. Hydroxyzine 10 mg on a p.r.n. basis. During the hospital stay, the patient was consulted by Dr. Nelson from Neurology. LABORATORY DATA AND STUDIES PERFORMED DURING THE HOSPITAL STAY: Included: On 03/15/17, white blood cell count of 7.5, hemoglobin of 14.7, hematocrit of 43, MCV of 101, and platelets of 341. Sodium was 135, potassium 4.2, carbon dioxide 23, BUN 21, creatinine 0.75. Lipid profile showed triglycerides of 110 , cholesterol total of 202, LDL of 125, and HDL of 55. TSH at presentation was 0.96. Urine drug screen was unremarkable at admission. Transthoracic echocardiogram showed mild concentric LVH with EF of 45% to 50%. Normal left ventricular diastolic filling observed. There were late bubbles seen in the left atrium. This raises the possibility of an intrapulmonary shunt. No definitive evidence of PFO. The aortic valve leaflets are mildly thickened. There is trace to mild mitral regurgitation and trace tricuspid regurgitation. There was mild decrease of the EF comparing from 2016. Brain MRI obtained on 03/14/17. Impression: "Chronic ischemic white matter change without evidence of restriction of diffusion." Head CTA obtained on 03/14/17. Impression: "No branch occlusion is noted. No aneurysmal dilatation is noted. Minimal plaque is noted within the carotid bulbs bilaterally. 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 For further details of the patient's presentation, please see history and physical dictated at admission. Shortly, the patient's symptoms entirely resolved by the time he was seen by myself on 03/15/17. He underwent physical therapy evaluation and ambulated without any problems. Dr. Nelson saw the patient in consultation and the assessment was that the patient most likely suffered from TIA. The patient was placed on a baby aspirin on a daily basis. His further workup showed echocardiogram that showed no definitive evidence of PFO. An MRI showed no abnormalities either apart from chronic white matter disease. The patient is going to be discharged home with recommendation to follow up with his primary care provider within the next 4 to 7 days. The patient was advised about discontinuation or limitation of his alcohol consumption on a daily basis. PHYSICAL EXAMINATION: At the time of discharge, blood pressure of 106/69, heart rate of 61 and regular, respiratory rate 16, oxygen saturation 97% on room air, temperature 98.6. General Appearance: The patient is a very pleasant 56-year-old male, who is in no acute distress. Alert, awake, and oriented x3. HEENT: Head atraumatic and normocephalic. Eyes: Pupils are equal and reactive to light and accommodation. Oropharynx clear. Mucosa moist. Neck: Supple. No JVD, no bruits bilaterally. Cardiovascular: Regular rate and rhythm. No murmur. Respiratory: Clear to auscultation bilaterally. Abdomen: Soft and nontender. Bowel sounds present in all 4 quadrants. Extremities: There is no edema. Pulses are +2 bilaterally. No clubbing or cyanosis. Neuro evaluation: Speech clear. Cranial nerves II through XII grossly intact. Motor strength is 5/5 bilaterally. Please note this is a short summary of the patient's hospital stay. Please refer to further medical records for details. [id number]/[facility] #: [id number] MTDD
== END 2017-03-15 18:15 | disposition home or self-care (01) ==
LOC: ED 12:54 → MEDTELE 17:27
PROVIDERS: ADMIT Hospitalist; ATTEND Internal Medicine
DX: R27.0 Ataxia, unspecified (principal); I10 Essential (primary) hypertension; K21.9 Gastro-esophageal reflux disease without esophagitis; F32.9 Major depressive disorder, single episode, unspecified; I42.9 Cardiomyopathy, unspecified; F41.9 Anxiety disorder, unspecified; E78.5 Hyperlipidemia, unspecified; I51.7 Cardiomegaly; I20.9 Angina pectoris, unspecified; Z79.82 Long term (current) use of aspirin; Z79.899 Other long term (current) drug therapy; F17.210 Nicotine dependence, cigarettes, uncomplicated
CPT/HCPCS: 36415; 70450; 70496; 70498; 70551; 71020; 80048; 80053; 80061; 80307; 80320; 81003; 82550; 83036; 83605; 83735; 83880; 84443; 84484; 85025; 85730; 86140; 93005; 93306; 96372; 99283; A9270-GY; G0378; G0480; J1644; Q9967

== ENCOUNTER 2017-03-18 22:41 | Observation (INO) | payer BC ==
[2017-03-18 23:20] LABS: Hematocrit 37 % (42-52); Mean Corpuscular HGB Conc 35 g/dl (31-36); Mean Corpuscular Hemoglobin 35 pg (27-31); Mean Corpuscular Volume 99 fL (80-94); Mean Platelet Volume 7 um3 (7.4-10.4); Red Blood Count 3.73 10^6/ul (4.0-5.4); Red Cell Distribution Width 13 % (10.5-15); White Blood Count 7.6 10^3/ul (3.5-10.8)
[2017-03-18 23:32] LABS: Albumin 4.2 g/dL (3.2-5.2); BUN/Creatinine Ratio 19.1 (8-20); Calcium 9.2 mg/dL (8.6-10.3); EGFR African American 154.6 (>60); EGFR Non-African American 120.2 (>60); Magnesium 1.8 mg/dL (1.9-2.7); Potassium 3.9 mmol/L (3.5-5.0); Total Bilirubin 0.4 mg/dL (0.2-1.0); Total Protein 7.2 g/dL (6.4-8.9)
[2017-03-18 23:35] LABS: Troponin I 0.01 ng/mL (<0.04)
[2017-03-18 23:46] LABS: TSH (Thyroid Stimulating Horm) 2.42 mcIU/mL (0.34-5.60)
--- NOTE | 2017-03-19 01:04 | ED ---
Kathryn Rosario Alok, scribed for Shannon Magallon MD on 03/18/17 at 2320 . Dizziness - HPI Summary HPI Summary: 56M presents to the ED BIBA for dizziness since 5 tonight. Pt states he was admitted 4 days ago for the same symptoms and discharged with a dx of TIA. CT and MRI were done. Pt states feeling momentarily dizzy yesterday as well which subsided until this evening. Pt states his dizziness worsens with head movement and ambulation. Pt also notes unsteady gait, and slight STEVE. Pt notes tinnitus on and off since today. Pt denies neck pain, diplopia, or dysphagia. PMHx includes HTN and HLD. Pt smokes tobacco and drinks ETOH daily. Pt states he had 8 drinks of ETOH [employer] today. - History Of Current Complaint Chief Complaint: EDDizziness Stated Complaint: DIZZINESS Time Seen by Provider: 03/18/17 23:06 Hx Obtained From: Patient Onset/Duration: Still Present Timing: Constant Severity Initially: Moderate Severity Currently: Moderate Character: Dizzy Aggravating Factor(s): Headache, Change In Head Position, Other - ambulation Alleviating Factor(s): Nothing Associated Signs And Symptoms: Positive: Tinnitus, Unsteady Gait. Negative: Fever, Other: - neck pain - Allergies/Home Medications Allergies/Adverse Reactions: Allergies Allergy/AdvReac Type Severity Reaction Status Date / Time No Known Allergies Allergy Verified 08/15/16 08:55 PMH/Surg Hx/FS Hx/Imm Hx Endocrine/Hematology History: Denies: Hx Anticoagulant Therapy, Hx Diabetes, Hx Thyroid Disease Cardiovascular History: Reports: Hx Angina, Hx Hypercholesterolemia, Other Cardiovascular Problems/Disorders - CHOLESTEROL CONTROL WITH MEDS Denies: Hx Coronary Artery Disease, Hx Hypertension, Hx Myocardial Infarction , Hx Pacemaker/ICD, Hx Valvular Heart Disease Respiratory History: Denies: Hx Asthma, Hx Chronic Obstructive Pulmonary Disease (COPD) GI History: Reports: Hx Gastroesophageal Reflux Disease - ON MEDS History: Denies: Hx Dialysis, Hx Renal Disease Musculoskeletal History: Reports: Other Musculoskeletal History - MENISCAL TEAR LEFT KNEE Sensory History: Denies: Hx Contacts or Glasses, Hx Hearing Aid Opthamlomology History: Denies: Hx Contacts or Glasses Neurological History: Denies: Hx Dementia, Hx Seizures Psychiatric History: Reports: Hx Depression - ON MEDS Denies: Hx Panic Disorder, Hx Substance Abuse - Surgical History Surgery Procedure, Year, and Place: 1997 BILATERAL CARPAL TUNNEL RELEASE, [facility]. 2007 & 2007 RIGHT ROTATOR CUFF REPAIR X 2, [facility]. 03/2014 CARDIAC CATHERIZATION, [facility]. MENISCUS REPAIR LEFT KNEE Hx Anesthesia Reactions: No Infectious Disease History: No Infectious Disease History: Denies: Hx Hepatitis, Hx Human Immunodeficiency Virus (HIV), Hx of Known/ Suspected MRSA, Traveled Outside the [place] in Last 30 Days - Family History Known Family History: Positive: Hypertension - Social History Lives: With Family Alcohol Use: Daily Alcohol Amount: 2-4/daily plus 30 pack/weekend Substance Use Type: Reports: None Hx Tobacco Use: Yes Smoking Status (MU): Heavy Every Day Tobacco Smoker Type: Cigarettes Amount Used/How Often: 1 PPD Length of Time of Smoking/Using Tobacco: 43 YEARS Have You Smoked in the Last Year: Yes Review of Systems Negative: Fever Negative: Diplopia Positive: Other - Tinnitus. Negative: Dysphagia Negative: Other - neck pain Neurological: Other - unsteady gait Positive: Headache Psychological: Other - Dizziness All Other Systems Reviewed And Are Negative: Yes Physical Exam Triage Information Reviewed: Yes Vital Signs On Initial Exam: Initial Vitals Temp Pulse Resp BP Pulse Ox 97.5 F 64 15 125/74 96 03/18/17 22:47 03/18/17 22:47 03/18/17 22:47 03/18/17 22:47 03/18/17 22:47 Vital Signs Reviewed: Yes Appearance: Positive: Well-Appearing, No Pain Distress Skin: Positive: Warm, Skin Color Reflects Adequate Perfusion, Dry Eyes: Positive: EOMI, AD ENT: Positive: Pharynx normal, TMs normal Neck: Positive: Supple, Nontender Respiratory/Lung Sounds: Positive: Clear to Auscultation, Breath Sounds Present. Negative: Rales, Rhonchi, Wheezes Cardiovascular: Positive: RRR, Other - no gallop. Negative: Murmur, Rub Abdomen Description: Positive: Nontender, Soft, Other: - no rebound. Negative: Distended, Guarding Bowel Sounds: Positive: Present Musculoskeletal: Positive: Strength/ROM Intact. Negative: Edema Left, Edema Right Neurological: Positive: Sensory/Motor Intact, Alert, Oriented to Person Place, Time, CN Intact II-III, Other - NIH stoke scale: 0 Psychiatric: Positive: Affect/Mood Appropriate - Pierce Coma Scale Coma Scale Total: 15 Diagnostics - Vital Signs Vital Signs Temp Pulse Resp BP Pulse Ox 03/18/17 23:00 63 16 119/84 95 03/18/17 22:54 15 03/18/17 22:52 16 03/18/17 22:50 125/74 03/18/17 22:47 97.5 F 64 15 125/74 96 - Laboratory Lab Results: Lab Results 03/18/17 03/18/17 03/18/17 Range/Units 23:05 23:05 23:05 WBC 7.6 (3.5-10.8) 10^3/ul RBC 3.73 L (4.0-5.4) 10^6/ul Hgb 13.0 L (14.0-18.0) g/dl Hct 37 L (42-52) % MCV 99 H (80-94) fL MCH 35 H (27-31) pg MCHC 35 (31-36) g/dl RDW 13 (10.5-15) % Plt Count 305 (150-450) 10^3/ul MPV 7 L (7.4-10.4) um3 Neut % (Auto) 66.1 (38-83) % Lymph % (Auto) 20.9 L (25-47) % [place] % (Auto) 9.6 H (1-9) % Eos % (Auto) 2.9 (0-6) % Baso % (Auto) 0.5 (0-2) % Absolute Neuts (auto) 5.0 (1.5-7.7) 10^3/ul Absolute Lymphs (auto) 1.6 (1.0-4.8) 10^3/ul Absolute Monos (auto) 0.7 (0-0.8) 10^3/ul Absolute Eos (auto) 0.2 (0-0.6) 10^3/ul Absolute Basos (auto) 0 (0-0.2) 10^3/ul Absolute Nucleated RBC 0 10^3/ul Nucleated RBC % 0.1 Sodium 126 L (133-145) mmol/L Potassium 3.9 (3.5-5.0) mmol/L Chloride 99 L (101-111) mmol/L Carbon Dioxide 23 (22-32) mmol/L Anion Gap 4 (2-11) mmol/L BUN 13 (6-24) mg/dL Creatinine 0.68 (0.67-1.17) mg/dL Est GFR ( Amer) 154.6 (>60) Est GFR (Non-Af Amer) 120.2 (>60) BUN/Creatinine Ratio 19.1 (8-20) Glucose 96 (70-100) mg/dL Lactic Acid 0.8 (0.5-2.0) mmol/L Calcium 9.2 (8.6-10.3) mg/dL Magnesium 1.8 L (1.9-2.7) mg/dL Total Bilirubin 0.40 (0.2-1.0) mg/dL AST 23 (13-39) U/L ALT 20 (7-52) U/L Alkaline Phosphatase 46 (34-104) U/L Troponin I 0.01 (<0.04) ng/mL Total Protein 7.2 (6.4-8.9) g/dL Albumin 4.2 (3.2-5.2) g/dL Globulin 3.0 (2-4) g/dL Albumin/Globulin Ratio 1.4 (1-3) TSH 2.42 (0.34-5.60) mcIU/mL Serum Alcohol 15 H (<10) mg/dL Result Diagrams: 03/18/17 23:05 03/18/17 23:05 Lab Statement: Any lab studies that have been ordered have been reviewed, and results considered in the medical decision making process. Dizzy Course/Dx - Course Course Of Treatment: 56 yo male admitted a few days ago with the possibility of tia after onset of ataxia his cta, ct and mri were neg he did not have a definitive pfo on his echo. Tonight he had the onset of ataxia, vertigo again he had an nih scale of zero on arrival and on repeated exams he has normal finger to nose and heel to olvera functioning, he becomes very ataxic when he walks. He is outside the tpa window, of note he has had hearing dysfunction over the last few weeks but on exam his tm's are normal. the case has been discussed with Dr. Barrera who has agreed to admit the patient. Of note the pt does admit to tob and heavy etoh (he drank 8 drinks tonight) - Diagnoses Provider Diagnoses: TIA (transient ischemic attack) - Provider Notifications Discussed Care Of Patient With: Pam Barrera - Will admit pt to [facility] [place] Time Discussed With Above Provider: 23:57 Discharge - Discharge Plan Condition: Stable Disposition: ADMITTED TO [facility] Referrals: Brittany Velez MD [Primary Care Provider] - The documentation as recorded by the Kathryn estevez Alok accurately reflects the service I personally performed and the decisions made by me, Shannon Magallon MD.
[2017-03-19] MEDS ORDERED: Acetaminophen TAB* 325 MG PO PRN (01:23)
[2017-03-19] MEDS ORDERED: Al Hydrox/Mg Hydrox/Simet LIQ* 30 ML UDC PO PRN (01:23)
[2017-03-19] MEDS ORDERED: Ondansetron INJ* 2 MG/ML VIAL IV PRN (01:23)
[2017-03-19] MEDS ORDERED: Docusate CAP* 100 MG PO PRN (01:23)
[2017-03-19] MEDS ORDERED: Senna TAB PO PRN (01:23)
[2017-03-19] MEDS ORDERED: Thiamine IV* 100 MG/ML 2 ML VIAL IM ONE (01:30)
[2017-03-19] MEDS ORDERED: NS 0.9% 1000 ML* 1,000 ML IV SCH (01:45)
[2017-03-19] MEDS ORDERED: LORazepam INJ* 2 MG/ML 1 ML VIAL IV SCH (02:00)
--- NOTE | 2017-03-19 04:50 | HP ---
CC: Dr. Brittany Millard; Dr. Nelson, Neurology.* HISTORY AND PHYSICAL: DATE OF ADMISSION: 03/19/17 TIME OF EVALUATION: 0100 CHIEF COMPLAINT: Dizzy and difficulty ambulating. HISTORY OF PRESENT ILLNESS: This is a 56-year-old male with a past medical history of alcohol abuse, who was recently admitted from 03/14/17 to 03/15/17 for concerns for a TIA with a full workup, who presented to the emergency room again with similar symptoms. The patient states he was feeling well on day of discharge and since then, taking his medications as prescribed when today, this evening, he began feeling dizzy and was unable to walk. When further clarifying his dizziness, he does not state the room spinning, but feels rather lightheaded when trying to stand up. He feels unsteady. He was nauseated and vomiting earlier, still is nauseous and this all started around 7:15 last evening. He also broke out into a sweat. He has a mild frontal headache. He also had diarrhea. He denied any vision changes. No weakness, no numbness, no chest pain, no shortness of breath, no fevers, chills, no abdominal pain, no loss of consciousness. The patient states he had about 8 beers throughout the day which is not unusual for him, and of note, he was also sitting outside all day and it was unusually landing man the high 80s. In the emergency room, the patient arrived via EMS. He was ambulated and it was noted that he was ambulating, lateralizing to the left and unsteady. Neurology was paged, but we did not hear back from them and the hospitalist service was called for further evaluation. Otherwise remainder of review of systems is negative. PAST MEDICAL HISTORY: 1. Recent admission from 03/14/17 to 03/15/17 for ataxia, suspected to be secondary to a TIA. 2. Hypertension. 3. GERD. 4. History of alcohol abuse. 5. Nonischemic cardiomyopathy with an EF of 40% to 45%. 6. Depression. 7. Anxiety. 8. Hyperlipidemia. DISCHARGE MEDICATIONS: 1. Aspirin 81 mg daily. 2. Atorvastatin 80 mg daily. 3. Vitamin D 2000 units daily. 4. Cymbalta 60 mg p.o. b.i.d. 5. Nexium 40 mg daily. 6. Lisinopril 20 mg daily. 7. Ferritin 10 mg daily. 8. Mobic 15 mg as needed. 9. Toprol-XL 50 mg daily. 10. Multivitamin daily. 11. Hydroxyzine 10 mg as needed. ALLERGIES: No known drug allergies. 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 He states he drinks about 3 to 4 beers each night during the week and about 15 beers on the weekend. 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 He smokes a pack per day for the past 40 years. His healthcare proxy is his , Gardenia Shaffer. CODE STATUS: Full code. REVIEW OF SYSTEMS: A 12-point review of systems is negative except for that as noted in the HPI. FAMILY HISTORY: Significant for mother with breast cancer and father with colon cancer. Father with esophageal cancer. Maternal grandmother with leukemia. PHYSICAL EXAMINATION GENERAL: In no acute distress, resting comfortably with his and son at the bedside. VITAL SIGNS: Temp 97.5, pulse rate 60, respiratory rate is 20, oxygen saturation 94% on room air, and blood pressure 118/77. HEENT: Head normocephalic. Pupils pinpoint, reactive and anicteric. Oropharynx: Mucous membranes are moist. No erythema or exudate. NECK: Supple. No lymphadenopathy. No nuchal rigidity. RESPIRATORY: Diminished breath sounds. No wheezes, rhonchi, or rales. CARDIAC: Regular rate and rhythm, soft systolic murmur heard throughout. ABDOMEN: Soft, nontender, nondistended. EXTREMITIES: No clubbing, cyanosis or edema. +1 DPs. NEUROLOGIC: Cranial nerves II through XII intact. Negative pronator drift. Equal and symmetric upper and lower muscle strength. Difficulty with heel to olvera on his right lower extremity. Did not ambulate him as he was ambulated by the ER staff and noted to be ataxic, lateralizing to the left. Alert and oriented x3. LABORATORY DATA: White count 7.6, hemoglobin 13, hematocrit 37, platelets 305. Sodium 126, potassium 3.9, chloride 99, bicarb 23, BUN 13, creatinine 0.6, magnesium 1.8. Alcohol level is 15. RADIOGRAPHIC DATA: None obtained. ASSESSMENT: This is a 56-year-old male with a past medical history of alcohol abuse and possible recent transient ischemic attack, who presents to the emergency room again with recurrent symptoms of ataxia, lightheadedness, diaphoresis. 1. Ataxia with lightheadedness and diaphoresis. Assessment: Unclear etiology of recurrence of his symptoms. At this time, he has had diarrhea as well. This could be multifactorial. It could be related to his alcohol use, possibly a component of Wernicke's encephalopathy. He also noted his sodium drop from 135 to 126, likely related to his alcohol use as well and the possibility of vomiting and diarrhea could be also a component of recurrence of a transient ischemic attack. His echo showed no definitive PFO, but could possibly have an intracardiac shunt. His remaining neurologic workup on the was unremarkable. Plan: We will admit him to telemetry overnight for observation. We will get a head CT, EKG and check a urine osmolality and sodium and give him a liter of normal saline, neurology checks, and we will resume him back on his home medications with aspirin and atorvastatin. We will hold his blood pressure medications. We will allow for permissive hypertension if this is in fact transient ischemic attack. Recommend trying again to contact neurology. CHRONIC MEDICAL PROBLEMS: 1. Alcohol abuse. Place the patient on a [place] protocol. Discussed my concern about his alcohol contributing to his symptoms. The patient and family did not feel this is related to his alcohol use. 2. Gastroesophageal reflux disease. Continue his PPI. 3. Hypertension. As mentioned, we will hold his antihypertensives. 4. Depression. Continue his Cymbalta. 5. FEN. Place him on a heart healthy diet. 6. DVT prophylaxis. The patient scores moderate risk. Place him on heparin subcu t.i.d. 7. Code status: Full code. PATIENT TIME: Greater than 60 minutes were spent doing the history and physical , more than half the time was spent in patient contact. [id number]/[facility] #: [id number] [place]
[2017-03-19] MEDS: Omeprazole CAP* 20 MG PO SCH (05:19)
[2017-03-19] MEDS: Heparin VIAL(*) 5000 UNITS/ML VIAL (FIVE THOUSAND) SUBCUT SCH ×3 (05:20→21:24)
--- NOTE | 2017-03-19 08:12 | RAD ---
Indication: Ataxia. Comparison: March 14, 2017 MRI. Technique: Noncontrast CT vertex of skull through foramen magnum. Report: The sulci, ventricles, and basal cisterns are normal for age. Ramirez matter white matter differentiation is preserved without evidence for edema. No intra or extra axial hemorrhage, mass, or fluid collection detected. Unremarkable visualized orbital contents. Unremarkable calvarium and skull base. Unremarkable scalp. The visualized paranasal sinuses and mastoid air spaces are clear. IMPRESSION: Negative unenhanced head CT.
[2017-03-19] MEDS: Multivitamins/Minerals TAB PO SCH (09:25)
[2017-03-19] MEDS: Thiamine TAB* 100 MG TAB PO SCH (09:26)
[2017-03-19] MEDS: Atorvastatin* 80 MG TAB PO SCH (09:26)
[2017-03-19] MEDS: Folic Acid TAB* 1 MG PO SCH (09:26)
[2017-03-19] MEDS: DULoxetine DR CAP* 60 MG CAP.DR PO SCH ×2 (09:26→20:35)
[2017-03-19] MEDS: Aspirin EC Low Dose* 81 MG TAB.EC PO SCH (09:26)
[2017-03-19 12:52] LABS: Urine Bilirubin Negative (Negative); Urine Glucose Negative (Negative); Urine Nitrite Negative (Negative)
[2017-03-19 17:03] LABS: Calcium 9.5 mg/dL (8.6-10.3); EGFR African American 113.3 (>60); EGFR Non-African American 88.1 (>60); Potassium 4.5 mmol/L (3.5-5.0)
[2017-03-19] MEDS ORDERED: Gadoteridol* (CONTRAST) 279.3 MG/ML 10 ML IV ONE (18:05)
--- NOTE | 2017-03-19 20:32 | PN ---
Subjective Date of Service: 03/19/17 Interval History: Pt is feeling better today but still off balance. He states he is still having slight lightheadedness upon sitting up from a lying positing. He has no pain. Objective Active Medications: Acetaminophen (Tylenol Tab*) 650 mg PO Q4H PRN PRN Reason: FEVER/PAIN Al Hydrox/Mg Hydrox/Simethicone (Maalox Plus*) 30 ml PO Q6H PRN PRN Reason: INDIGESTION Aspirin (Aspirin Ec Low Dose*) 81 mg PO DAILY [facility] Last Admin: 03/19/17 09:26 Dose: 81 mg Atorvastatin Calcium (Lipitor*) 80 mg PO DAILY [facility] Last Admin: 03/19/17 09:26 Dose: 80 mg Docusate Sodium (Colace Cap*) 100 mg PO BID PRN PRN Reason: CONSTIPATION Duloxetine HCl (Cymbalta Cap*) 60 mg PO BID [facility] Last Admin: 03/19/17 09:26 Dose: 60 mg Folic Acid (Folvite Tab*) 1 mg PO DAILY [facility] Last Admin: 03/19/17 09:26 Dose: 1 mg Heparin Sodium (Porcine) (Heparin Vial(*)) 5,000 units SUBCUT Q8HR [facility] Last Admin: 03/19/17 15:41 Dose: 5,000 units Lorazepam (Ativan Inj*) 0 mg IV .PER WAM SCORE [facility] PRN Reason: Protocol Multivitamins/Minerals (Theragran/Minerals Tab*) 1 tab PO DAILY [facility] Last Admin: 03/19/17 09:25 Dose: 1 tab Omeprazole (Prilosec Cap*) 20 mg PO 0600 [facility] Last Admin: 03/19/17 05:19 Dose: 20 mg Ondansetron HCl (Zofran Inj*) 4 mg IV Q4H PRN PRN Reason: NAUSEA/VOMITING Senna (Senokot Tab*) 1 tab PO BID PRN PRN Reason: CONSTIPATION Thiamine HCl (Vitamin B-1 Tab*) 100 mg PO DAILY [facility] Last Admin: 03/19/17 09:26 Dose: 100 mg Vital Signs 03/19/17 03/19/17 03/19/17 01:41 04:11 06:10 Temperature 98.0 F 97.8 F 97.9 F Pulse Rate 69 56 60 Respiratory 18 20 20 Rate Blood Pressure 115/75 114/66 105/63 (mmHg) O2 Sat by Pulse 96 97 99 Oximetry 03/19/17 03/19/17 03/19/17 07:00 07:58 08:00 Temperature 97.7 F Pulse Rate 59 Respiratory 20 16 16 Rate Blood Pressure 101/49 (mmHg) O2 Sat by Pulse 97 Oximetry 03/19/17 03/19/17 03/19/17 10:00 11:00 12:08 Temperature 98.4 F 98.2 F Pulse Rate 59 57 Respiratory 18 18 18 Rate Blood Pressure 100/62 110/70 (mmHg) O2 Sat by Pulse 96 96 Oximetry 03/19/17 03/19/17 03/19/17 12:50 14:29 15:00 Temperature Pulse Rate 66 Respiratory 18 18 Rate Blood Pressure 119/73 (mmHg) O2 Sat by Pulse 95 Oximetry 03/19/17 03/19/17 03/19/17 15:46 17:00 17:29 Temperature 98.2 F 97.5 F Pulse Rate 69 73 Respiratory 18 18 16 Rate Blood Pressure 102/67 111/81 (mmHg) O2 Sat by Pulse 95 97 Oximetry 03/19/17 20:07 Temperature 98.4 F Pulse Rate 64 Respiratory 20 Rate Blood Pressure 114/65 (mmHg) O2 Sat by Pulse 97 Oximetry Oxygen Devices in Use Now: None Appearance: Middle aged male lying in bed, NAD Eyes: No Scleral Icterus Ears/Nose/Mouth/Throat: Mucous Membranes Moist Respiratory: Symmetrical Chest Expansion and Respiratory Effort, Clear to Auscultation Cardiovascular: NL Sounds; No Murmurs; No JVD, RRR, No Edema Abdominal: NL Sounds; No Tenderness; No Distention Extremities: No Clubbing, Cyanosis Skin: No Rash or Ulcers, No Nodules or Sclerosis Neurological: Alert and Oriented x 3 Result Diagrams: 03/18/17 23:05 03/19/17 16:38 Additional Lab and Data: Lab Results 03/18/17 03/18/17 03/18/17 Range/Units 23:05 23:05 23:05 WBC 7.6 (3.5-10.8) 10^3/ul RBC 3.73 L (4.0-5.4) 10^6/ul Hgb 13.0 L (14.0-18.0) g/dl Hct 37 L (42-52) % MCV 99 H (80-94) fL MCH 35 H (27-31) pg MCHC 35 (31-36) g/dl RDW 13 (10.5-15) % Plt Count 305 (150-450) 10^3/ul MPV 7 L (7.4-10.4) um3 Neut % (Auto) 66.1 (38-83) % Lymph % (Auto) 20.9 L (25-47) % [place] % (Auto) 9.6 H (1-9) % Eos % (Auto) 2.9 (0-6) % Baso % (Auto) 0.5 (0-2) % Absolute Neuts (auto) 5.0 (1.5-7.7) 10^3/ul Absolute Lymphs (auto) 1.6 (1.0-4.8) 10^3/ul Absolute Monos (auto) 0.7 (0-0.8) 10^3/ul Absolute Eos (auto) 0.2 (0-0.6) 10^3/ul Absolute Basos (auto) 0 (0-0.2) 10^3/ul Absolute Nucleated RBC 0 10^3/ul Nucleated RBC % 0.1 Sodium 126 L (133-145) mmol/L Potassium 3.9 (3.5-5.0) mmol/L Chloride 99 L (101-111) mmol/L Carbon Dioxide 23 (22-32) mmol/L Anion Gap 4 (2-11) mmol/L BUN 13 (6-24) mg/dL Creatinine 0.68 (0.67-1.17) mg/dL Est GFR ( Amer) 154.6 (>60) Est GFR (Non-Af Amer) 120.2 (>60) BUN/Creatinine Ratio 19.1 (8-20) Glucose 96 (70-100) mg/dL Lactic Acid 0.8 (0.5-2.0) mmol/L Calcium 9.2 (8.6-10.3) mg/dL Magnesium 1.8 L (1.9-2.7) mg/dL Total Bilirubin 0.40 (0.2-1.0) mg/dL AST 23 (13-39) U/L ALT 20 (7-52) U/L Alkaline Phosphatase 46 (34-104) U/L Troponin I 0.01 (<0.04) ng/mL Total Protein 7.2 (6.4-8.9) g/dL Albumin 4.2 (3.2-5.2) g/dL Globulin 3.0 (2-4) g/dL Albumin/Globulin Ratio 1.4 (1-3) TSH 2.42 (0.34-5.60) mcIU/mL Serum Alcohol 15 H (<10) mg/dL Assess/Plan/Problems-Billing Mr Shaffer is a 56 yo M who has a h/o HTN, non-ischemic CM, alcohol abuse, depression/anxiety who presented to the ER with the sudden onset of ataxia. - Patient Problems (1) Ataxia Current Visit: Yes Status: Acute Code(s): R27.0 - ATAXIA, UNSPECIFIED SNOMED Code(s): 00719198 Comment: The etiology is not clear. In speaking with Dr. Muñoz she does not think this represents TIA. Last hospitalization he reportedly was falling to the left when walking, this time he has been falling to the right. Dr. Muñoz has recommended MRI with thin slices through brainstem. PT. Recheck labs. (2) Hyponatremia Current Visit: Yes Status: Acute Code(s): E87.1 - HYPO-OSMOLALITY AND HYPONATREMIA SNOMED Code(s): 42378794 Comment: Na level low on admission. Likely related to dehydration and drinking beer. Will recheck labs today. (3) HTN (hypertension) Current Visit: Yes Status: Acute Code(s): I10 - ESSENTIAL (PRIMARY) HYPERTENSION SNOMED Code(s): 32269478 Comment: BP is under good control off his metoprolol XL and lisinopril. ? dehydration in the setting of hot temperatures and beer drinking. Continue to follow the BP and add back antihypertensives as needed/able. (4) Non-ischemic cardiomyopathy Current Visit: Yes Status: Acute Code(s): I42.8 - OTHER CARDIOMYOPATHIES SNOMED Code(s): 24082911 Comment: ACEI/BBlocker currently on hold. Add back when able. (5) Anxiety and depression Current Visit: Yes Status: Acute Code(s): F41.9 - ANXIETY DISORDER, UNSPECIFIED; F32.9 - MAJOR DEPRESSIVE DISORDER, SINGLE EPISODE, UNSPECIFIED SNOMED Code(s): 717008113 Comment: Continue cymbalta. (6) DVT prophylaxis Current Visit: Yes Status: Acute Code(s): SQF9490 - SNOMED Code(s): 090268654 Comment: SQ heparin (7) Full code status Current Visit: Yes Status: Acute Code(s): Z78.9 - OTHER SPECIFIED HEALTH STATUS SNOMED Code(s): 728406563
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
[2017-03-20] MEDS: Omeprazole CAP* 20 MG PO SCH (05:42)
[2017-03-20] MEDS: Heparin VIAL(*) 5000 UNITS/ML VIAL (FIVE THOUSAND) SUBCUT SCH (05:43)
--- NOTE | 2017-03-20 07:25 | RAD ---
INDICATION: Ataxia, hearing and memory loss. COMPARISON: Comparison is made with a prior MRI of the brain from March 14, [address] of the brain from March 19, 2017. TECHNIQUE: Sagittal T1, axial T1, T2, susceptibility, FLAIR and diffusion-weighted images were obtained. In addition, axial sagittal and coronal T1-weighted images were obtained following intravenous injection of 14 ml of ProHance contrast, including thin sections through the temporal bones. FINDINGS: The ventricles, cisterns and sulci appear to be within normal limits. There are small areas of increased signal intensity present bilaterally within the subcortical and periventricular white matter. This is a nonspecific finding although suggestive of mild chronic small vessel ischemic changes. No other focal abnormality or mass effect is seen. 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 No abnormal area of enhancement is seen. No areas of restricted diffusion are present. There is no evidence for infarct or hemorrhage. The 7th and 8th nerve appear normal in size and signal intensity and are without abnormal enhancement. The cerebellar pontine angle cisterns appear widely patent. There is minimal mucosal thickening within the ethmoid air cells. The paranasal sinuses and mastoid air cells otherwise appear clear. IMPRESSION: 1. NO EVIDENCE FOR ACUTE FINDING. 2. FINDINGS SUGGESTIVE OF MILD CHRONIC SMALL VESSEL ISCHEMIC CHANGES.
[2017-03-20] MEDS: Aspirin EC Low Dose* 81 MG TAB.EC PO SCH (08:06)
[2017-03-20] MEDS: Thiamine TAB* 100 MG TAB PO SCH (08:06)
[2017-03-20] MEDS: Multivitamins/Minerals TAB PO SCH (08:06)
[2017-03-20] MEDS: Folic Acid TAB* 1 MG PO SCH (08:07)
[2017-03-20] MEDS: Atorvastatin* 80 MG TAB PO SCH (08:07)
[2017-03-20] MEDS: DULoxetine DR CAP* 60 MG CAP.DR PO SCH (08:07)
[2017-03-20 11:37] VITALS: BP 127/87
--- NOTE | 2017-03-20 12:23 | DCNOTE ---
DOA: 03/19/2017 DOD: 03/20/2017 Care team: Admitting provider: Dr. Pam Barrera Attending Provider: GRADY Gordon Neurologist: Dr. Stefanie Muñoz PCP: Dr. Brittany Velez Discharge diagnosis: 1) Ataxia secondary to alcohol use/vitamin deficiency: Etiology is still somewhat unclear but is likely related to a component of Wernicke's encephalopathy given patient's history of chronic alcohol use and history of poor nutrition and most recent alcohol consumption. Evidence of TIA less likely given the recurrence of his symptoms from hospitalization on 2016 and negative MRI/CT results. Secondary diagnosis: 1) Hypertension 2) GERD 3) Chronic alcohol use 4) Nonischemic cardiomyopathy with EF of 40-45% 5) Hyperlipidemia 6) Anxiety 7) Depression Discharge medications: 1) Cymbalta 60 mg PO BID 2) Nexium 40 mg daily 3) Lisinopril 20 mg daily 4) Toprol-XL 50 mg daily 5) Vitamin D 2000 units daily 6) Ferritin 10 mg daily 7) Mobic 15 mg as needed 8) Multivitamin daily 9) Hydroxyzine 10 mg PRN 10) Thiamine 100 mg PO daily 11) Folic Acid 1 mg PO daily 12) Lipitor 80 mg PO daily 13) Aspirin 81 mg PO daily Changes to home medications: 1) Resume Thiamine 2) Resume Folic Acid Imagin) EKG: Sinus bradycardia with normal axis. 2) Brain CT: unremarkable 3) MRI with and without contrast compared to MRI and CT angiogram on 03/14/2017 : No evidence of acute findings. Findings suggestive of mild chronic small vessel ischemic changes. Hospital course: Mr. Shaffer is a 56 yo white male with history of chronic alcohol use, HTN, GERD, nonischemic cardiomyopathy, hyperlipidemia, and recent admission form 03/14/2017-03/15/2017 for ataxia, suspected to be secondary to possible TIA. Patient presented to the ED on night of 03/18/17 with similar symptoms of ataxia and lightheadness, as well as new symptoms of STEVE, diaphoresis , and nausea and vomiting. Patient also has some hearing loss in his left ear with mild tinnitus. Patient is a chronic alcohol user and was reported to be drinking 6-7 beers on day of admission without good nutrition. Patient was ordered CT and MRI with particular attention paid to cerebellar region and results were unremarkable. Neurology consult with Dr. Muñoz was made who thinks patient symptoms correlated more with a component of Wernicke's encephalopathy rather that TIA. His lab workup was pertinent for Sodium drop from 135 to 126, which later corrected itself with use of NS fluids to 136. Patient was given both IV Thiamine and later IM thiamine upon admission and folic acid. Vitamin B 12 was found to be 782 WNL, and results of copper, vitamin E and urine osmolality is still pending. During the course of his stay patient's Toprol and Lisinorpil was held for permissive HTN and was started on high dose statin and ASA if this was in fact a TIA. On day of discharge patient notes remarkable improvement in his STEVE, lightheadedness, and ataxia. He denies any more nausea or vomiting and denies any new symptoms. On PE patient appears calm in NAD. Lungs: chest is symmetric and lungs are clear to auscultation. Heart: RRR without murmurs, rubs, or gallops. Abdomen: soft and nontender with normoactive bowel sounds. Extremities are without edema and 2+ pedal pulses. Neuro exam yields EOMI without nystagmus , pupils are reactive to light and consensual light bilaterally. Sensation and motor strength intact bilaterally. Romberg and pronator drift were both negative. Gait was assessed and patient is able to walk in a straight line, walk on heels/toes. Vital signs were within normal limits, with patient assessed on telemetry which endorsed normal sinus rhythm with some periods of bradycardia. Patient is to remain alcohol free for the next couple of weeks to see if the symptoms that attributed to his admission resolve. He will remain on Thiamine and folic acid at this time and encouraged to eat a well balanced diet and encouraged fluids. He may also resume at home blood pressure medications. It is possible that his dizziness could be attributed to hypotension and follow up should reassess antihypertensive regimen. Follow up/ Disposition: Patient will be discharged home to his with education of discontinuing alcohol use for a few weeks, if not indefinitely given his history. He is to remain on Thiamine and Folic acid and to resume all home medications including his antihypertensives. Patient is to follow up with PCP in the next week and to return sooner if symptoms worsen. Plan has been made with Dr. Muñoz, neurologist that has been following Mr. Shaffer throughout the hospital stay, to follow up outpatient. Referral has also been made to ENT per Dr. Muñoz recommendations due to patients endorsed hearing loss in left ear and mild tinnitus, which could suggest something like Meniere's disease which could be attributing to his symptoms.
--- NOTE | 2017-03-21 04:26 | DS ---
CC: Dr. Brittany Millard; Dr. Stefanie Muñoz; Dr. Whitney * DISCHARGE SUMMARY: DATE OF ADMISSION: 03/19/17 DATE OF DISCHARGE: 03/20/17 PRIMARY CARE PROVIDER: Dr. Brittany Millard. CONSULTING NEUROLOGIST: Dr. Stefanie Muñoz. DISCHARGING PROVIDER: GRADY Rand SUPERVISING PHYSICIAN: Nancy Church MD * (DICTATED BY GRADY RAND) PRIMARY DISCHARGE DIAGNOSES: 1. Ataxia - etiology is not entirely known, but does not appear to be consistent with a transient ischemic attack or cerebrovascular attack. 2. Hyponatremia - resolved. SECONDARY DISCHARGE DIAGNOSES: 1. Alcoholism. 2. Hypertension. 3. Nonischemic cardiomyopathy with ejection fraction last measured at 40% to 45 %. 4. Anxiety and depression. DISCHARGE MEDICATIONS: 1. Aspirin 81 mg p.o. daily. 2. Lipitor 80 mg p.o. daily. 3. Vitamin D3 2000 units p.o. daily. 4. Cymbalta 60 mg p.o. twice daily. 5. Nexium 40 mg p.o. daily. 6. Folic acid 1 mg p.o. daily. 7. Lisinopril 20 mg p.o. daily. 8. Loratadine 10 mg p.o. daily. 9. Meloxicam 7.5 to 15 mg p.o. as needed for pain. 10. Metoprolol succinate 50 mg p.o. daily. 11. Multivitamin 1 tablet p.o. daily. 12. Thiamine 100 mg p.o. daily. 13. Hydroxyzine 20 to 30 mg p.o. t.i.d. as needed for anxiety. Medication changes 1. Start folic acid. 2. Start thiamine. HOSPITAL IMAGIN. CT of the brain, which shows no acute process. 2. MRI of the brain with thin slices through the brain stem shows no acute infarct, but evidence of some chronic microvascular changes. 3. EKG demonstrates sinus bradycardia without acute ischemic changes. HOSPITAL COURSE: This is a 56-year-old gentleman with hypertension, GERD, nonischemic cardiomyopathy, depression and anxiety, hyperlipidemia and alcoholism who presented to the hospital for the second time in about a week with complaints of ataxia. The patient was hospitalized for similar symptoms recently with a negative workup at that time and his symptoms resolved spontaneously. He was discharged with a diagnosis of likely TIA and sent home with an aspirin and statin. The patient states that he had decreased his alcohol intake as recommended at the time of discharge and had been feeling well up until the day of admission. That day, he had a barbeque with the family and was outside and it was quite warm and had several beers admitting to about 5 to 7. He states that he felt fine during the day, but then in the evening, he felt dizzy and was unable to walk. His brought him back to the hospital for reevaluation. His initial labs were remarkable for hyponatremia with a sodium of 126. Slightly hypomagnesemic with a magnesium of 1.8. Serum alcohol at that time was negligible at 15. The patient was subsequently admitted to a period of observation, underwent evaluation by Neurology. Recommendation by Neurology was to repeat an MRI with attention to the brain stem. This was completed. It did not demonstrate any acute changes. Along with his complaints of ataxia, the patient also was complaining of intermittent tinnitus and hearing loss in his left ear. Upon further questioning, this seems to be a rather chronic problem for him and may be results of hearing loss that he sustained during an accident several years ago. The patient complains of ataxia in terms of which direction he was tending towards were different on each presentation. Vitamin B12 levels were ordered, which were normal at 782. Pending at the time of discharge is still methylmalonic acid, vitamin E and copper. His TSH was checked and was within normal limits. The patient was rehydrated with normal saline and his sodium levels came back up to normal. It was thought that his initial hyponatremia was likely due to hypovolemia and excessive diuresis due to use of beer. The patient's orthostatic vital signs were checked after he had received some fluids and did demonstrate a significant rise in pulse and actually showed an improvement in blood pressure. At the time of discharge, the patient had some very mild dizziness, but denies any ataxia. His neurologic exam is intact. Etiology of his ataxia is not completely understood at this point today and may be multifactorial. It certainly seems like his symptoms were likely at least exacerbated if not completely explained by excessive use of alcohol on a hot day causing dehydration and subsequent hypovolemia. However, this is his second episode in about a week with somewhat different presenting symptoms. There is no acute infarct recognized on MRI. He does have some associated hearing loss and tinnitus. Again, this may be chronic, but would certainly warrant an ENT evaluation as Meniere's may be a potential etiology. As noted above, his vitamin B12 levels have been checked, but vitamin E and copper as well as methylmalonic acid are pending at the time of discharge. Wernicke's encephalopathy was considered as a possible diagnosis and the patient did receive a banana bag on both his hospital admissions recently and has been receiving oral supplementation as well, so testing serum thiamine levels at this point will likely not give us a clear picture as to whether thiamine deficiency is significantly contributing to his symptoms, but would at least warrant continuing thiamine supplementation at this time. DISPOSITION AND FOLLOWUP PLAN: The patient is being discharged home where he lives with his . He received instructions to avoid further alcohol use at least for the next several weeks to see how his symptoms are influenced. He is instructed to continue folic acid and thiamine supplementation as well as obtain evaluation by ear, nose, and throat specialist and follow up with neurologist, Dr. Muñoz, as well as his primary care provider. Please follow up on results of vitamin E and copper as well as methylmalonic acid, which are pending at this time of discharge. GRADY RAND [id number]/[facility] #: [id number]
[2017-03-22 21:14] LABS: Vitamin E 13.5 mg/L (5.5 - 17.0)
== END 2017-03-20 13:08 | disposition home or self-care (01) ==
LOC: ED 22:41 → MEDTELE 03-19 01:33
PROVIDERS: ADMIT Pediatrics; ATTEND Internal Medicine
DX: R27.0 Ataxia, unspecified (principal); G45.9 Transient cerebral ischemic attack, unspecified; I10 Essential (primary) hypertension; E87.1 Hypo-osmolality and hyponatremia; F41.8 Other specified anxiety disorders; F10.20 Alcohol dependence, uncomplicated; R42 Dizziness and giddiness; H93.19 Tinnitus, unspecified ear; F17.210 Nicotine dependence, cigarettes, uncomplicated; Z79.82 Long term (current) use of aspirin
CPT/HCPCS: 36415; 70450; 70553; 80048; 80053; 80320; 81003; 82525; 82607; 83605; 83735; 83921; 83930; 83935; 84300; 84443; 84446; 84484; 85025; 93005; 99283; 99406; A9270-GY; A9579; G0378; G0480; J1644

== ENCOUNTER 2017-07-24 09:41 | Emergency (ER) | payer BC ==
[2017-07-24] MEDS ORDERED: Ondansetron INJ* 2 MG/ML VIAL ONE (09:59)
[2017-07-24] MEDS ORDERED: Ondansetron INJ* 2 MG/ML VIAL IV ONE (10:00)
[2017-07-24] MEDS ORDERED: Meclizine TAB* 12.5 MG PO ONE (10:17)
[2017-07-24 10:28] LABS: Hematocrit 36 % (42-52); Hemoglobin 12.5 g/dl (14.0-18.0); Mean Corpuscular HGB Conc 35 g/dl (31-36); Mean Corpuscular Hemoglobin 36 pg (27-31); Mean Corpuscular Volume 103 fL (80-94); Mean Platelet Volume 7 um3 (7.4-10.4); Red Blood Count 3.52 10^6/ul (4.0-5.4); Red Cell Distribution Width 13 % (10.5-15); White Blood Count 7.9 10^3/ul (3.5-10.8)
--- NOTE | 2017-07-24 10:42 | RAD ---
INDICATION: Dizziness and chest pain COMPARISON: Similar chest x-ray March 14, 2017 TECHNIQUE: Single AP portable view of the chest was obtained. FINDINGS: Image quality is compromised due to the relative inferiority of a portable chest x-ray. The heart and mediastinum exhibit normal size and contour. The lungs are grossly clear. There is no evidence of a large pleural effusion. Visualized bones are normal for the patient's age. IMPRESSION: No radiographic evidence for acute cardiopulmonary abnormality on this portable chest x-ray.
[2017-07-24 10:45] LABS: Troponin I 0.01 ng/mL (<0.04)
[2017-07-24 10:49] LABS: ALT 23 U/L (7-52); AST 23 U/L (13-39); Albumin 4.1 g/dL (3.2-5.2); Alkaline Phosphatase 41 U/L (34-104); Anion Gap 5 mmol/L (2-11); BUN/Creatinine Ratio 23.4 (8-20); Blood Urea Nitrogen 18 mg/dL (6-24); CO2 Carbon Dioxide 26 mmol/L (22-32); Calcium 8.8 mg/dL (8.6-10.3); Chloride 108 mmol/L (101-111); EGFR African American 133.9 (>60); EGFR Non-African American 104.1 (>60); Globulin 2.6 g/dL (2-4); Glucose 129 mg/dL (70-100); Sodium 139 mmol/L (133-145); Total Protein 6.7 g/dL (6.4-8.9)
[2017-07-24 10:52] LABS: Urine Bilirubin Negative (Negative); Urine Glucose Negative (Negative); Urine Nitrite Negative (Negative)
--- NOTE | 2017-07-24 11:09 | RAD ---
Indication: Dizziness. CT of the brain was performed without IV contrast and compared to previous exam dated March 19, 2017. Ventricular structures are midline. No midline shift is noted. The extra-axial spaces are unremarkable. There is no evidence of intracranial mass or hemorrhage. No other high or low density lesions identified. Mastoid air cells and paranasal sinuses are otherwise unremarkable. IMPRESSION: There is no evidence of intracranial mass or hemorrhage.
[2017-07-24 11:20] LABS: Alcohol < 10 mg/dL (<10)
[2017-07-24 11:22] LABS: Benzodiazepine Urine Screen None Detected (None Detect)
--- NOTE | 2017-07-24 12:06 | ED ---
Mundo Rosario Benjamin, scribed for Adin Flores MD on 07/24/17 at 1008 . Dizziness - HPI Summary HPI Summary: 56yo male presents to ED with dizziness and N/V this morning. Symptoms first started with dizziness and then pt felt nauseous and had vomited. Pt also felt like passing out. Pt describes his dizziness as room spinning like sensation. Denies diplopia, SOB, CP, or palpitations. Pt is an [employer] worker and he was moving boxes at the time of episode. Pt has hx of TIA this March and has been following up with Dr. Muñoz since. Pt has also been following up with a finish photographer and an ENT doc for some hearing problems. Pt reports left ear pain today. Scheduled for colonoscopy tomorrow, which pt needs to takes some pre-op meds for this evening. - History Of Current Complaint Chief Complaint: EDDizziness Stated Complaint: LOW HEART RATE Time Seen by Provider: 07/24/17 09:46 Hx Obtained From: Patient, Family/Small Engine Trainer - Onset/Duration: Resolved Timing: Intermittent Episode Lasting - minutes Severity Initially: Moderate Severity Currently: None Character: Room Spinning, Dizzy Aggravating Factor(s): Exertion - while moving boxes Alleviating Factor(s): Nothing Associated Signs And Symptoms: Positive: Nausea, Vomiting - Risk Factors CVA Risk Factor: Prior CVA/TIA - prior TIA - Allergies/Home Medications Allergies/Adverse Reactions: Allergies Allergy/AdvReac Type Severity Reaction Status Date / Time No Known Allergies Allergy Verified 08/15/16 08:55 PMH/Surg Hx/FS Hx/Imm Hx Endocrine/Hematology History: Denies: Hx Anticoagulant Therapy, Hx Diabetes, Hx Thyroid Disease Cardiovascular History: Reports: Hx Angina, Hx Hypercholesterolemia, Hx Hypertension, Other Cardiovascular Problems/Disorders - CHOLESTEROL CONTROL WITH MEDS Denies: Hx Coronary Artery Disease, Hx Myocardial Infarction, Hx Pacemaker/ ICD, Hx Valvular Heart Disease Respiratory History: Denies: Hx Asthma, Hx Chronic Obstructive Pulmonary Disease (COPD) GI History: Reports: Hx Gastroesophageal Reflux Disease - ON MEDS History: Denies: Hx Dialysis, Hx Renal Disease Musculoskeletal History: Reports: Hx Arthritis - right wrist, Other Musculoskeletal History - MENISCAL TEAR LEFT KNEE Sensory History: Denies: Hx Contacts or Glasses, Hx Hearing Aid Opthamlomology History: Denies: Hx Contacts or Glasses Neurological History: Denies: Hx Dementia, Hx Seizures Psychiatric History: Reports: Hx Anxiety, Hx Depression - ON MEDS Denies: Hx Panic Disorder, Hx Substance Abuse - Surgical History Surgery Procedure, Year, and Place: 1997 BILATERAL CARPAL TUNNEL RELEASE, [facility]. 2007 & 2007 RIGHT ROTATOR CUFF REPAIR X 2, [facility]. 03/2014 CARDIAC [place] [facility] [place]ENISCUS REPAIR LEFT KNEE Hx Anesthesia Reactions: No Infectious Disease History: No Infectious Disease History: Denies: Hx Hepatitis, Hx Human Immunodeficiency Virus (HIV), Hx of Known/ Suspected MRSA, Traveled Outside the [place] in Last 30 Days - Family History Known Family History: Positive: Hypertension - Social History Alcohol Use: Occasionally Alcohol Amount: 2-4/daily plus 30 pack/weekend Substance Use Type: Reports: None Hx Tobacco Use: Yes Smoking Status (MU): Heavy Every Day Tobacco Smoker Type: Cigarettes Amount Used/How Often: 1 PPD Length of Time of Smoking/Using Tobacco: 43 YEARS Have You Smoked in the Last Year: Yes Review of Systems Constitutional: Negative Eyes: Negative Positive: Ear Ache - left Cardiovascular: Negative Negative: Palpitations, Chest Pain Respiratory: Negative Negative: Shortness Of Breath Positive: Vomiting, Nausea. Negative: Abdominal Pain, Diarrhea Genitourinary: Negative Positive: no symptoms reported Musculoskeletal: Negative Neurological: Other - dizziness Psychological: Normal All Other Systems Reviewed And Are Negative: Yes Physical Exam - Summary Physical Exam Summary: VITAL SIGNS: Reviewed. GENERAL: Patient is a well-developed and nourished male who is lying comfortable in the stretcher. Patient is not in any acute respiratory distress. Pt is ataxic when walking. HEAD AND FACE: No signs of trauma. No ecchymosis, hematomas or skull depressions. No sinus tenderness. EYES: PERRLA, EOMI x 2, No injected conjunctiva, no nystagmus. No photophobia. EARS: Hearing grossly intact. Ear canals and tympanic membranes are within normal limits. MOUTH: Oropharynx within normal limits. NECK: Supple, trachea is midline, no adenopathy, no JVD, no carotid bruit, no c- spine tenderness, neck with full ROM. No meningeal signs, no Kernig's or brudzinskis signs. CHEST: Symmetric, no tenderness at palpation LUNGS: Clear to auscultation bilaterally. No wheezing or crackles. CVS: Regular rate and rhythm, S1 and S2 present, no murmurs or gallops appreciated. ABDOMEN: Soft, non-tender. No signs of distention. No rebound no guarding, and no masses palpated. Bowel sounds are normal. EXTREMITIES: FROM in all major joints, no edema, no cyanosis or clubbing. NEURO: Alert and oriented x 3. No acute neurological deficits. Speech is normal and follows commands. SKIN: Dry and warm GCS: 15 Triage Information Reviewed: Yes Vital Signs On Initial Exam: Initial Vitals Temp Pulse Resp BP Pulse Ox 96.7 F 52 17 186/91 94 07/24/17 09:45 07/24/17 09:45 07/24/17 09:45 07/24/17 09:45 07/24/17 09:45 Vital Signs Reviewed: Yes - [place] Coma Scale Coma Scale Total: 15 Diagnostics - Vital Signs Vital Signs Temp Pulse Resp BP Pulse Ox 07/24/17 09:47 53 07/24/17 09:45 96.7 F 52 17 186/91 94 - Laboratory Lab Results: Lab Results 07/24/17 07/24/17 07/24/17 Range/Units 10:16 10:16 10:16 WBC 7.9 (3.5-10.8) 10^3/ul RBC 3.52 L (4.0-5.4) 10^6/ul Hgb 12.5 L (14.0-18.0) g/dl Hct 36 L (42-52) % MCV 103 H (80-94) fL MCH 36 H (27-31) pg MCHC 35 (31-36) g/dl RDW 13 (10.5-15) % Plt Count 250 (150-450) 10^3/ul MPV 7 L (7.4-10.4) um3 Neut % (Auto) 73.7 (38-83) % Lymph % (Auto) 15.1 L (25-47) % [place] % (Auto) 8.9 (1-9) % Eos % (Auto) 1.8 (0-6) % Baso % (Auto) 0.5 (0-2) % Absolute Neuts (auto) 5.8 (1.5-7.7) 10^3/ul Absolute Lymphs (auto) 1.2 (1.0-4.8) 10^3/ul Absolute Monos (auto) 0.7 (0-0.8) 10^3/ul Absolute Eos (auto) 0.1 (0-0.6) 10^3/ul Absolute Basos (auto) 0 (0-0.2) 10^3/ul Absolute Nucleated RBC 0 10^3/ul Nucleated RBC % 0 INR (Anticoag Therapy) 0.92 (0.89-1.11) APTT 26.0 (26.0-36.3) seconds Sodium 139 (133-145) mmol/L Potassium 4.0 (3.5-5.0) mmol/L Chloride 108 (101-111) mmol/L Carbon Dioxide 26 (22-32) mmol/L Anion Gap 5 (2-11) mmol/L BUN 18 (6-24) mg/dL Creatinine 0.77 (0.67-1.17) mg/dL Est GFR ( Amer) 133.9 (>60) Est GFR (Non-Af Amer) 104.1 (>60) BUN/Creatinine Ratio 23.4 H (8-20) Glucose 129 H (70-100) mg/dL Lactic Acid (0.5-2.0) mmol/L Calcium 8.8 (8.6-10.3) mg/dL Total Bilirubin 0.50 (0.2-1.0) mg/dL AST 23 (13-39) U/L ALT 23 (7-52) U/L Alkaline Phosphatase 41 (34-104) U/L Troponin I 0.01 (<0.04) ng/mL Total Protein 6.7 (6.4-8.9) g/dL Albumin 4.1 (3.2-5.2) g/dL Globulin 2.6 (2-4) g/dL Albumin/Globulin Ratio 1.6 (1-3) Urine Color Urine Appearance Urine pH (5-9) Ur Specific [place] (1.010-1.030) Urine Protein (Negative) Urine Ketones (Negative) Urine Blood (Negative) Urine Nitrate (Negative) Urine Bilirubin (Negative) Urine Urobilinogen (Negative) Ur Leukocyte Esterase (Negative) Urine Glucose (Negative) Urine Opiates Screen (None Detect) Ur Barbiturates Screen (None Detect) Ur Phencyclidine Scrn (None Detect) Ur Amphetamines Screen (None Detect) U Benzodiazepines Scrn (None Detect) Urine Cocaine Screen (None Detect) U Cannabinoids Screen (None Detect) Serum Alcohol < 10 (<10) mg/dL Blood Type Antibody Screen 07/24/17 07/24/17 07/24/17 Range/Units 10:16 10:16 10:38 WBC (3.5-10.8) 10^3/ul RBC (4.0-5.4) 10^6/ul Hgb (14.0-18.0) g/dl Hct (42-52) % MCV (80-94) fL MCH (27-31) pg MCHC (31-36) g/dl RDW (10.5-15) % Plt Count (150-450) 10^3/ul MPV (7.4-10.4) um3 Neut % (Auto) (38-83) % Lymph % (Auto) (25-47) % [place] % (Auto) (1-9) % Eos % (Auto) (0-6) % Baso % (Auto) (0-2) % Absolute Neuts (auto) (1.5-7.7) 10^3/ul Absolute Lymphs (auto) (1.0-4.8) 10^3/ul Absolute Monos (auto) (0-0.8) 10^3/ul Absolute Eos (auto) (0-0.6) 10^3/ul Absolute Basos (auto) (0-0.2) 10^3/ul Absolute Nucleated RBC 10^3/ul Nucleated RBC % INR (Anticoag Therapy) (0.89-1.11) APTT (26.0-36.3) seconds Sodium (133-145) mmol/L Potassium (3.5-5.0) mmol/L Chloride (101-111) mmol/L Carbon Dioxide (22-32) mmol/L Anion Gap (2-11) mmol/L BUN (6-24) mg/dL Creatinine (0.67-1.17) mg/dL Est GFR ( Amer) (>60) Est GFR (Non-Af Amer) (>60) BUN/Creatinine Ratio (8-20) Glucose (70-100) mg/dL Lactic Acid 1.1 (0.5-2.0) mmol/L Calcium (8.6-10.3) mg/dL Total Bilirubin (0.2-1.0) mg/dL AST (13-39) U/L ALT (7-52) U/L Alkaline Phosphatase (34-104) U/L Troponin I (<0.04) ng/mL Total Protein (6.4-8.9) g/dL Albumin (3.2-5.2) g/dL Globulin (2-4) g/dL Albumin/Globulin Ratio (1-3) Urine Color Urine Appearance Urine pH (5-9) Ur Specific [place] (1.010-1.030) Urine Protein (Negative) Urine Ketones (Negative) Urine Blood (Negative) Urine Nitrate (Negative) Urine Bilirubin (Negative) Urine Urobilinogen (Negative) Ur Leukocyte Esterase (Negative) Urine Glucose (Negative) Urine Opiates Screen None detected (None Detect) Ur Barbiturates Screen None detected (None Detect) Ur Phencyclidine Scrn None detected (None Detect) Ur Amphetamines Screen None detected (None Detect) U Benzodiazepines Scrn None detected (None Detect) Urine Cocaine Screen None detected (None Detect) U Cannabinoids Screen None detected (None Detect) Serum Alcohol (<10) mg/dL Blood Type B Positive Antibody Screen Negative 07/24/17 Range/Units 10:38 WBC (3.5-10.8) 10^3/ul RBC (4.0-5.4) 10^6/ul Hgb (14.0-18.0) g/dl Hct (42-52) % MCV (80-94) fL MCH (27-31) pg MCHC (31-36) g/dl RDW (10.5-15) % Plt Count (150-450) 10^3/ul MPV (7.4-10.4) um3 Neut % (Auto) (38-83) % Lymph % (Auto) (25-47) % [place] % (Auto) (1-9) % Eos % (Auto) (0-6) % Baso % (Auto) (0-2) % Absolute Neuts (auto) (1.5-7.7) 10^3/ul Absolute Lymphs (auto) (1.0-4.8) 10^3/ul Absolute Monos (auto) (0-0.8) 10^3/ul Absolute Eos (auto) (0-0.6) 10^3/ul Absolute Basos (auto) (0-0.2) 10^3/ul Absolute Nucleated RBC 10^3/ul Nucleated RBC % INR (Anticoag Therapy) (0.89-1.11) APTT (26.0-36.3) seconds Sodium (133-145) mmol/L Potassium (3.5-5.0) mmol/L Chloride (101-111) mmol/L Carbon Dioxide (22-32) mmol/L Anion Gap (2-11) mmol/L BUN (6-24) mg/dL Creatinine (0.67-1.17) mg/dL Est GFR ( Amer) (>60) Est GFR (Non-Af Amer) (>60) BUN/Creatinine Ratio (8-20) Glucose (70-100) mg/dL Lactic Acid (0.5-2.0) mmol/L Calcium (8.6-10.3) mg/dL Total Bilirubin (0.2-1.0) mg/dL AST (13-39) U/L ALT (7-52) U/L Alkaline Phosphatase (34-104) U/L Troponin I (<0.04) ng/mL Total Protein (6.4-8.9) g/dL Albumin (3.2-5.2) g/dL Globulin (2-4) g/dL Albumin/Globulin Ratio (1-3) Urine Color Yellow Urine Appearance Clear Urine pH 5.0 (5-9) Ur Specific [place] 1.010 (1.010-1.030) Urine Protein Negative (Negative) Urine Ketones Negative (Negative) Urine Blood Negative (Negative) Urine Nitrate Negative (Negative) Urine Bilirubin Negative (Negative) Urine Urobilinogen Negative (Negative) Ur Leukocyte Esterase Negative (Negative) Urine Glucose Negative (Negative) Urine Opiates Screen (None Detect) Ur Barbiturates Screen (None Detect) Ur Phencyclidine Scrn (None Detect) Ur Amphetamines Screen (None Detect) U Benzodiazepines Scrn (None Detect) Urine Cocaine Screen (None Detect) U Cannabinoids Screen (None Detect) Serum Alcohol (<10) mg/dL Blood Type Antibody Screen Result Diagrams: 07/24/17 10:16 07/24/17 10:16 Lab Statement: Any lab studies that have been ordered have been reviewed, and results considered in the medical decision making process. - Radiology CXR Xray Interpretation: No Acute Changes - IMPRESSION: No radiographic evidence for acute cardiopulmonary abnormality on this portable chest x-ray. Radiology Interpretation Completed By: Radiologist - ED physician has reviewed this radiology report and agrees. - CT CT Brain CT Interpretation: No Acute Changes - IMPRESSION: There is no evidence of intracranial mass or hemorrhage. CT Interpretation Completed By: Radiologist - ED physician has reviewed this radiology report and agrees. - EKG 1002. Cardiac Rate: Bradycardia - 55bpm EKG Rhythm: Sinus Bradycardia EKG Interpretation: No ST elevation. normal axis EKG Comparison: No Significant Change - compared to 03/20/17. Dizzy Course/Dx - Course Course Of Treatment: Consulted Dr. Muñoz (Neurologist) at 1011 hour for a neuro consult regarding pt's case. Assessment/Plan: In the ED course an IV access was obtained. Patient was placed in a equipment monitor phototypesetting. Patient was started with IV fluids. He was given Zofran and Antivert for the Dizziness. Labs without any significant abnormality except for slight normocytic normochromic anemia. Troponin #1: 0.00. EKG shows a NSR w/o ST elevations. CXR impression: No acute pathology. Head CT impression: NO acute intracranial abnormality. I discussed with Dr. Muñoz ( Neurology) since she has seen the patient back in 03/17 for same symptoms and he was diagnosed with TIA. He had a full w/o with Head CT, 2 MRIs and CTA and all were found w/o acute pathology. After medications all his symptoms improved. I believe symptoms are secondary to Vertigo. He has seen his commissions specialist last Sunday and he was found to be with decreased hearing in the left ear. At this point I discussed all the findings and test results with the patient and patient s parents. They were instructed to return to the emergency room immediately if any of the symptoms return or worsens. They understand and agree. Neurological exam before discharge: Patient is alert and oriented x 3. No acute neurological deficits. Patient vital signs are stable. Patient is to follow up with the upper and bottom lacer hand in the next 2 3 days. They understand and agree. Plan of care was discussed with the patient and patient understands and agrees with the plan of care. All questions were answered at patient satisfaction. There were no further complaints or concerns. - Diagnoses Differential Diagnosis/HQI/PQRI: Anxiety, Benign Paroxysmal Positional Vertigo, CVA, Transient Ischemic Attack, Vasovagal Reaction Provider Diagnoses: BPV (benign positional vertigo) Discharge - Discharge Plan Condition: Stable Disposition: HOME Prescriptions: Meclizine TAB* [Antivert 12.5 TAB*] 25 mg PO TID PRN #30 tab PRN Reason: Vertigo Ondansetron TAB* [Zofran 4 MG Tab*] 4 mg PO Q6H PRN #10 tab PRN Reason: Vomiting Patient Education Materials: Vertigo (ED) Referrals: Brittany Velez MD [Primary Care Provider] - The documentation as recorded by the Mundo estevez Benjamin accurately reflects the service I personally performed and the decisions made by Mark fitch Walter, MD.
[2017-07-24 12:13] VITALS: BP 147/98
== END 2017-07-24 12:31 | disposition home or self-care (01) ==
LOC: ED 09:41
DX: H81.12 Benign paroxysmal vertigo, left ear (principal); I10 Essential (primary) hypertension; E78.00 Pure hypercholesterolemia, unspecified; F41.9 Anxiety disorder, unspecified; F32.9 Major depressive disorder, single episode, unspecified; K21.9 Gastro-esophageal reflux disease without esophagitis; F17.210 Nicotine dependence, cigarettes, uncomplicated; Z86.73 Personal history of transient ischemic attack (TIA), and cerebral infarction without residual deficits
CPT/HCPCS: 36415; 70450; 71010; 80053; 80307; 80320; 81003; 83605; 84484; 85025; 85610; 85730; 86850; 86900; 86901; 93005; 96374; 99283; A9270-GY; G0480; J2405

== ENCOUNTER → 2018-08-12 11:02 | Day surgery (SDC) | payer BC ==
[~2018-08-12 11:02] MED LIST: Buffered Lidocaine 0.9% SYRIN* 5 ML/SYR SYRINGE INTRADERM ONE; Lidocaine 2% PF * 5 ML VIAL ONE; Metoprolol Succinate XL TAB* 50 MG PO ONE; Metoprolol Tartrate IV* 1 MG/ML 5 ML VIAL ONE; Midazolam* 1 MG/ML 5 ML VIAL (5 MG) ONE; Naloxone* 0.4 MG/ML 1 ML VIAL IV PRN; Propofol* 10 MG/ML 20 ML BTL IV PUSH ONE; fentaNYL* 50 MCG/ML 2 ML VIAL (100 MCG VIAL) ONE
[2018-08-12 14:13] VITALS: BP 142/95
--- NOTE | 2018-08-19 21:59 | PRO ---
DATE OF PROCEDURE: 08/12/18 [facility] PROCEDURE: Colonoscopy with anesthesia. INDICATION: Incomplete colonoscopy just a few months ago, terminated secondary to the patient's intolerance of conscious sedation. MEDICATIONS GIVEN: Propofol per the general anesthesia staff. DESCRIPTION OF PROCEDURE: After the colonoscopy procedure including the risks, benefits, and alternatives not limited to perforation, surgery, and/or were explained to the patient, written consent was then obtained, IV sedation was given by Anesthesia and a rectal exam was performed. The rectal exam was unremarkable. An Olympus colonoscope was then inserted into the patient's rectum and advanced very carefully through the entirety of the colon and into the cecal base. Careful and thorough inspection within the cecal base did not reveal any abnormalities. The quality of the preparation was fair. The scope was then withdrawn in a very careful manner over the next 10 minutes through the remainder of the colon. In total, 3 colorectal polyps were seen, first at 55 cm from the anal verge removed with jumbo biopsy forceps; 2 at 25 cm from the anal verge, 1 removed with snare, 1 removed with biopsies. The scope was then withdrawn through the remainder of the colon. No other abnormalities were seen. In the rectum, a retroflexion maneuver was performed, it was unremarkable. The scope was withdrawn from the patient. He tolerated the procedure well and was returned to the recovery room in stable condition. IMPRESSION: 1. Complete colonoscopy into the cecum with snare polypectomy and biopsy polypectomy. 2. Three colorectal polyps, status post biopsy polypectomy of a transverse colon polyp and sigmoid colon polyp. 3. Snare polypectomy of a sigmoid colon polyp. 4. I will follow up on the biopsies and report back to the patient at that time. He should have a repeat colonoscopy in 5 years from now. [id number]/[facility] #: [id number] [facility]
== END | disposition home or self-care (01) ==
LOC: OR 11:02
PROVIDERS: ATTEND Internal Medicine Gastroenterology
DX: Z86.010 Personal history of colon polyps (principal); K63.5 Polyp of colon; K21.9 Gastro-esophageal reflux disease without esophagitis; F41.8 Other specified anxiety disorders; I42.9 Cardiomyopathy, unspecified; Z72.0 Tobacco use
CPT/HCPCS: 88305; A9270-GY; J2250; J2704; J3010; J3490